=== PATIENT | female | born 1965 | race Caucasian/White ===

== ENCOUNTER 2018-12-26 21:08 | Inpatient (IN) ==
[2018-12-26] MEDS ORDERED: Heparin 25,000 UNIT/250 ML D5W 25,000 UNIT/250 ML IV.SOLN IVC SCH (23:45)
[2018-12-26] MEDS ORDERED: Ondansetron 4 MG/2 ML VIAL IVP PRN (23:46)
[2018-12-26] MEDS ORDERED: Acetaminophen 325 MG TABLET PO PRN (23:46)
[2018-12-26] MEDS ORDERED: *HR* Heparin 5,000 UNIT/ML VIAL IVP PRN ×2 (23:46)
[2018-12-26] MEDS ORDERED: Naloxone 0.4 MG/ML INJ IVP PRN (23:46)
[2018-12-26] MEDS ORDERED: Fluticasone Propionate Nasal 50 MCG/SPRAY BOTTLE NS PRN (23:55)
[2018-12-26] MEDS ORDERED: clonazePAM 0.5 MG TABLET PO PRN (23:55)
[2018-12-26] MEDS ORDERED: Loratadine 10 MG TABLET PO PRN (23:55)
[2018-12-26] MEDS ORDERED: EPINEPHrine 1 MG/ML VIAL IM PRN (23:55)
[2018-12-27] MEDS: *HR* OxyCODONE/APAP 5/325 TABLET PO PRN ×2 (00:54→07:56)
[2018-12-27] MEDS: 0.9 % Sodium Chloride w KCl 20 MEQ/1,000 ML MLS IVC SCH ×2 (00:55→10:46)
[2018-12-27 01:14] LABS: Basophils # 0.1 K/mcL (0.0-0.2); Basophils % 0.8 %; Eosinophils # 0.2 K/mcL (0.0-0.6); Hematocrit 35.3 % (35.3-44.9); Hemoglobin 11.1 g/dL (11.5-15.4); Immature Granulocytes % 0.1 % (0-4); Lymphocytes # 3.2 K/mcL (0.6-4.6); Lymphocytes % 43.2 %; Mean Corpuscular HGB Conc 31.4 g/dL (31.6-35.5); Mean Corpuscular Hemoglobin 29.1 pg (28.0-33.3); Mean Corpuscular Volume 92.4 fL (83.0-100.0); Mean Platelet Volume 9.6 fL (9.4-12.4); Monocytes # 0.5 K/mcL (0.0-1.3); Monocytes % 6.7 %; Neutrophils # 3.5 K/mcL (1.6-8.9); Platelet Count 246 K/mcL (140-400); Red Blood Count 3.82 M/mcL (3.82-4.97); Red Cell Distribution Width 13.2 % (11.5-14.5); Segmented Neutrophils % 47.2 %; White Blood Count 7.3 K/mcL (4.3-11.1)
[2018-12-27 01:34] LABS: Alanine Aminotransferase 7 Units/L (7-52); Albumin 3.7 g/dL (3.5-5.7); Albumin/Globulin Ratio 1.5 (1.1-2.2); Alkaline Phosphatase 46 Units/L (34-104); Aspartate Amino Transferase 10 Units/L (13-39); BUN/Creatinine Ratio 8 (6-26); Bilirubin,Total 0.2 mg/dL (0.3-1.0); Blood Urea Nitrogen 7 mg/dL (6-20); Calcium 8.6 mg/dL (8.6-10.3); Carbon Dioxide 20 mEq/L (23-29); Chloride 109 mEq/L (98-107); Chol/HDL Ratio 3.6 (0-4.9); Cholesterol 172 mg/dL (< 200); Globulin 2.5 g/dL (2.4-3.5); Glucose 113 mg/dL (70-105); HDL Cholesterol 48 mg/dL (40-59); LDL Cholesterol,Calculated 92 mg/dL (0-99); Magnesium 2.1 mg/dL (1.6-2.6); Osmolality,Calculated 289 (280-300); Phosphorous 3.5 mg/dL (2.7-4.5); Potassium 3.4 mEq/L (3.5-5.1); Sodium 140 mEq/L (136-145); Total Protein 6.2 g/dL (6.4-8.9); Triglycerides 159 mg/dL (< 150); eGFR For African Americans > 60 (> 60); eGFR For Non-African Americans > 60 (> 60)
[2018-12-27] MEDS: *HR* FentaNYL (PF) 100 MCG/2 ML VIAL IVP PRN ×2 (02:15→05:40)
--- NOTE | 2018-12-27 02:48 | Internal Med History&Physical ---
Date of Encounter: 12/26/18 Time of Encounter: 23:20 Internal Medicine - H&P: HPI Chief complaint: chest pain; racing heartbeat Admitted From: Hospital to Hospital Transfer Plans for Post Hospital Care: Home History of present illness: Ms. Torres is a 53 year old female who presents in transfer from [facility] ER. She presented there with complaints of palpitations, racing heartbeat, and pain in her right arm and chest. Workup there revealed patient to have atrial fibrillation with rapid ventricular response. She had an elevated d-dimer with subsequent CTA of the chest confirming a small pulmonary e mbolus. She was started on Cardizem drip and heparin drip and transferred to [facility] for further workup and care. I accepted the patient in transfer and requested she be given a dose of potassium supplementation prior to transfer. Upon arrival to [facility], I saw the patient shortly after she arrived. At that point, she converted to normal sinus rhythm. She has minimal chest pain now. She has no shortness of breath. She does complain of pain in her right arm. She was diagnosed with a superficial thrombus in her right arm a few days ago. She did have right shoulder surgery roughly 1 month ago and has been doing well recovering from that. Upon further history, patient states she has had right calf tenderness and leg swelling just last week. The tenderness and swe lling have subsided, but the swelling and pain in her right arm has increased. She has a history of paroxysmal atrial fibrillation one time roughly 2 years ago which was cardioverted. She has had no dysrhythmia since then. She does not take any anticoagulants. She has no prior history of unprovoked DVT or PE. There is a family history of DVT in her paternal uncle side. Past Med Surg Social Fam HX - Past Medical History Attestation: Yes The following information was validated with the patient. Source: patient, old records reviewed, obtained from family Medical history: asthma, atrial fibrillation, COPD, fibromyalgia, GERD, hepatitis, hypertension Additional medical history: Hep C (remission) treated in 2009 Psychiatric history: anxiety, depression - Past Surgical History Surgical History: appendectomy, cholecystectomy, hysterectomy, orthopedic, other Additional surgical history: Rotator cuff-2017. right shoulder replacement- 2019. left shoulder. neck fusion - Social History Smoking Status: Former smoker Smokeless Tobacco Status: No Alcohol use: none Drug use: none Current living situation: Home, With Family Activity Level: Independent ambulation Recent Out of Country Travel Within the Last 8 Weeks: No - Family History Mother Hx Family Cardiac Disorders: Yes Hx Family Respiratory Disorders: Yes - Additional Family History Additional family history: Paternal uncle w DVT Internal Medicine - H&P: Meds Montelukast [Singulair] 10 mg PO HS 05/22/15 [History] rOPINIRole [Requip] 1 mg PO DAILY 08/10/15 [History] Cholecalciferol (D-3) [Vitamin D] 5,000 unit PO BID 01/02/16 [History] Cyanocobalamin (Vitamin B-12) [Vitamin B12] 500 mcg PO BID 01/02/16 [History] Fluticasone Propionate Nasal [Flonase] 1 spray NS BID PRN 01/02/16 [History] Ondansetron HCl [Zofran] 4 mg PO Q8H PRN 01/02/16 [History] Cetirizine HCl [Zyrtec] 10 mg PO DAILY PRN #0 07/19/16 [Rx] Diltiazem CD (24hr) [Cardizem CD] 240 mg PO DAILY 06/18/17 [History] Gabapentin [Neurontin] 800 mg PO TID 06/18/17 [History] Sertraline [Zoloft] 50 mg PO HS 06/18/17 [History] clonazePAM [Klonopin] 0.5 mg PO BID PRN 06/18/17 [History] EPINEPHrine [Epipen] 0.3 mg IM ONCE PRN #1 kit 07/16/17 [Rx] Albuterol Sulfate [Ventolin Hfa] 2 puff IH Q4H PRN 11/19/18 [History] Amlodipine Besylate 5 mg PO DAILY 11/19/18 [History] Cyclobenzaprine [Flexeril] 10 mg PO TID PRN 11/19/18 [History] Metoprolol [Lopressor] 25 mg PO BID 11/19/18 [History] Omeprazole [PriLOSEC] 40 mg PO BID 11/19/18 [History] Pravastatin Sodium [Pravachol] 40 mg PO HS 11/19/18 [History] Tiotropium Br/Olodaterol HCl [Stiolto Respimat Inhal [place]] 2 puff IH DAILY 11/19/18 [History] Topiramate 50 mg PO BID 11/19/18 [History] traZODone [TraZODone] 50 mg PO HS 11/19/18 [History] Naproxen [Naprosyn] 500 mg PO BID #10 tablet 12/25/18 [Rx] OxyCODONE/APAP 5/325 [Percocet 5/325 MG] 1 each PO Q6HR PRN 12/26/18 [History] Allergy/AdvReac Type Severity Reaction Status Date / Time bee venom protein (honey bee) Allergy Anaphylaxis Verified 12/26/18 18:50 aspirin AdvReac Hives/Swell Verified 11/19/18 09:30 ing celecoxib [From Celebrex] AdvReac Hives/Shortness Verified 11/19/18 09:30 of Breath/Swelling mannitol [From Reclast] AdvReac Fever/Nause Verified 11/19/18 09:30 a/Vomiting meloxicam AdvReac Hives/Swell Verified 11/19/18 09:30 ing water for injection,sterile AdvReac Fever/Nause Verified 11/19/18 09:30 [From Reclast] a/Vomiting zoledronic acid AdvReac Fever/Nause Verified 11/19/18 09:30 [From Reclast] a/Vomiting - Constitutional Constitutional: no chills, no fever(s), no night sweats - EENT Eyes: no blurry vision, no change in vision Ears: no ear pain, no tinnitus Nose, mouth and throat: no nasal congestion, no sinus pressure, no sore throat - Cardiovascular Cardiovascular ROS IM: chest pain, dyspnea, dyspnea on exertion, irregular heart rhythm, palpitations, no orthopnea, no paroxysmal nocturnal dyspnea - Respiratory Respiratory: dyspnea, pain on inspiration, pain with cough, no cough, no hemoptysis, no chest congestion, no excessive phlegm production, no change in phlegm color - Gastrointestinal Gastrointestinal: no abdominal pain, no diarrhea, no hematemesis, no hematochezia, no melena, no vomiting - Genitourinary Genitourinary: no dysuria, no flank pain, no hematuria - Musculoskeletal Musculoskeletal ROS IM: arthralgias, no back pain - Integumentary Integumentary IM: no rash, no jaundice - Neurological Neurological ROS: no dizziness, no focal weakness, no frequent falls, no headache(s) - Psychiatric Psychiatric: no anxiety, no depression - Endocrine Endocrine IM: no polydipsia, no polyphagia, no polyuria - Allergic/Immunologic Allergic/Immunologic: no GI upset with certain foods - Constitutional Vitals: Temp Pulse Resp BP Pulse Ox 98.4 F 78 16 123/86 95 12/26/18 22:54 12/26/18 22:54 12/26/18 22:54 12/26/18 22:54 12/26/18 23:08 General appearance: Present: cooperative, mild distress, A&O X 3, pleasant, no acute distress, answers questions appropriately Exam: mild right arm pain/swelling; minimal chest pain now - Head Head exam: Present: atraumatic, normal inspection - Eye Eye exam: Present: EOMI, PERRL. Absent: scleral icterus Pupils: Present: normal accommodation - ENT ENT exam: Present: mucous membranes dry, normal exam, normal oropharynx - Neck Neck exam general surgery: Present: full ROM, supple, trachea midline. Absent: tenderness, nuchal rigidity, thyromegaly - Respiratory Respiratory exam: Present: CTAB. Absent: accessory muscle use, chest wall tenderness, rales, respiratory distress, rhonchi, wheezes, tachypnea - Cardiovascular Cardiovascular exam: Present: distant heart sounds, RRR, +S1, +S2, systolic murmur. Absent: diastolic murmur - GI/Abdominal GI/Abdominal exam: Present: normal bowel sounds, soft. Absent: guarding, hepatomegaly, mass, rebound, splenomegaly, tenderness - Extremities Exam Extremities exam: Present: calf tenderness (right leg), full ROM, joint swelling (right shoulder -- wound healing well), normal capillary refill, tenderness (right arm/axilla w swelling), warm, radial pulses palpable and symmetrical. Absent: pedal edema - Back Exam Back exam: Present: normal inspection. Absent: CVA tenderness (L), CVA tenderness (R) - Neurological Exam Neurological exam: Present: alert, CN II-XII intact, oriented X3, strengths equal and symetr throughout. Absent: motor sensory deficit, no focal deficits - Psychiatric Psychiatric exam: Present: normal affect, normal mood - Skin Skin exam: Present: dry, intact, warm Internal Med - H&P Results - Labs CBC & Chem 7: 12/27/18 00:59 12/27/18 00:59 Labs: Short CBC 12/27/18 Range/Units 00:59 WBC 7.3 (4.3-11.1) K/mcL Hgb 11.1 L (11.5-15.4) g/dL Hct 35.3 (35.3-44.9) % Plt Count 246 (140-400) K/mcL Neutrophils # 3.5 (1.6-8.9) K/mcL BMP 12/27/18 00:59 Sodium 140 Potassium 3.4 L Chloride 109 H Carbon Dioxide 20 L BUN 7 Creatinine 0.83 Glucose 113 H Calcium 8.6 Cardiac Enzymes 12/27/18 Range/Units 00:59 Troponin I < 0.03 (< 0.04) ng/mL Liver Function 12/27/18 Range/Units 00:59 Total Bilirubin 0.2 L (0.3-1.0) mg/dL AST 10 L (13-39) Units/L ALT 7 (7-52) Units/L Alkaline Phosphatase 46 (34-104) Units/L Albumin 3.7 (3.5-5.7) g/dL - EKG Data -: EKG Interpreted by Myself - EKG Data Prior EKG available for review: yes EKG comments: 12/27/18 02:53 Atrial Fibrillation w RVR -- converted to NSR - Assessment and Plan (1) Atrial fibrillation with RVR Current Visit: Yes Status: Acute Assessment and plan: 1. Currently in NSR. 2. Wean off Cardizem drip. 3. Correct electrolytes. 4. Resume home meds in AM (Metoprolol/Cardizem). 5. ECHO, serial troponins, and telemetry monitoring. 6. Heparin gtt. 7. Consult cardiology. (2) Pulmonary embolism Current Visit: Yes Status: Acute Assessment and plan: 1. Heparin drip. 2. ECHO as above. 3. BLE and BUE Dopplers to rule out potential source for PE. 4. Convert to oral anti-coagulant prior to discharge. Qualifiers: Pulmonary embolism type: unspecified Chronicity: acute Acute cor pulmonale presence: without acute cor pulmonale Qualified Code(s): I26.99 - Other pulmonary embolism without acute cor pulmonale (3) S/P shoulder hemiarthroplasty Current Visit: Yes Status: Chronic Assessment and plan: 1. Consult orthopedics to assess wound and for post-op care. Qualifiers: Laterality: right Qualified Code(s): Z96.611 - Presence of right artificial shoulder joint (4) Hypokalemia Current Visit: Yes Status: Acute Assessment and plan: 1. Replace potassium orally. 2. Monitor electrolytes.
[2018-12-27] MEDS: Diltiazem CD (24hr) 240 MG CAPSULE PO SCH (07:55)
[2018-12-27] MEDS: Topiramate 25 MG TABLET PO SCH ×2 (07:55→19:53)
[2018-12-27] MEDS: Gabapentin 400 MG CAPSULE PO SCH ×3 (07:55→19:26)
[2018-12-27] MEDS: Cholecalciferol (D-3) 1,000 UNIT (25MCG) TABLET PO SCH (07:55)
--- NOTE | 2018-12-27 08:46 | Cardiology Consult Note ---
<Stu Cunningham Sabina - Last Filed: 12/27/18 09:08> Date of Encounter: 12/27/18 Time of Encounter: 08:37 Assessment and Plan (1) PAF (paroxysmal atrial fibrillation) Current Visit: Yes Status: Acute PAF diagnosed. A-Fib RVR HR 160s on presentation. Had been worked up for palpitations as outpt--Holter 09/2018 no arrhythmias noted. TTE 2015 EF preserved. Stress echo 09/2018 negative for ischemia. Pt has since converted back to SR. On PO BB and CCB. Continue. [id number] 2 (HTN, Female). High CVA risk. PE noted on chest CTA. Xarelto has already been started, PE dosing. Recommend rechecking TTE to evaluate structure and function. Will discuss and review with Dr. Kwok. (2) Pulmonary embolism Current Visit: Yes Status: Acute Management per primary team. Started on Xarelto. Qualifiers: Pulmonary embolism type: unspecified Chronicity: acute Acute cor pulmonale presence: without acute cor pulmonale Qualified Code(s): I26.99 - Other pulmonary embolism without acute cor pulmonale Discussion w patient/family: The assessment and plan as outlined above was discussed with the patient and/or family members who expressed understanding and agreement. All questions were answered. Thank you for involving us in the care of your patient. Please call with any questions. I will discuss all the above with Dr. Kwok and make changes as necessary. History of Present Illness Consult date: 12/27/18 Consult reason: PAF Chief complaint: palpitations History of present illness: Ms. Torres is a 53 year old female with PMH of HTN, palpitations who presents in transfer from [facility] ER. She presented with complaints of palpitations, pain in her right arm and chest, dyspnea. Workup revealed A-Fib RVR, elevated d-dimer with subsequent CTA of the chest confirming a small pulmonary embolus. She was started on Cardizem drip and heparin drip and transferred to [facility] for further workup and care. She has since coverted to . Reports a superficial thrombus in her right arm recently with right shoulder surgery roughly 1 month ago. Cardiology consulted for PAF. Prior CV testing: TTE 04/01/16: LVEF 55%. Pseudonormal LV diastolic function. Normal right ventricular size and function. No significant valvular dysfunction. Estimated RVSP was 13 mmHg. No pulmonary hypertension. Stress echo 10/07/18: Appropriate increase in LVEF with stress. Stress ECG is negative for ischemia. Holter 10/08/18: Impression: 1. Baseline rhythm is normal sinus throughout recording. 2. Rare PACs. Rare PVCs. 3. No atrial or ventricular arrhythmias. No pauses. 4. During pt reported symptoms, rhythm is normal sinus. Past Med Surg Social Fam HX - Past Medical History Medical history: asthma, atrial fibrillation, COPD, fibromyalgia, GERD, hepatitis, hypertension Additional medical history: Hep C (remission) treated in 2009 Psychiatric history: anxiety, depression - Past Surgical History Surgical History: appendectomy, cholecystectomy, hysterectomy, orthopedic, other Additional surgical history: Rotator cuff-2017. right shoulder replacement- 2019. left shoulder. neck fusion - Social History Smoking Status: Former smoker Smokeless Tobacco Status: No Alcohol use: none Drug use: none - Family History Mother Hx Family Cardiac Disorders: Yes Hx Family Respiratory Disorders: Yes Medications and Allergies Montelukast [Singulair] 10 mg PO HS 05/22/15 [History] rOPINIRole [Requip] 1 mg PO DAILY 08/10/15 [History] Cholecalciferol (D-3) [Vitamin D] 5,000 unit PO BID 01/02/16 [History] Cyanocobalamin (Vitamin B-12) [Vitamin B12] 500 mcg PO BID 01/02/16 [History] Fluticasone Propionate Nasal [Flonase] 1 spray NS BID PRN 01/02/16 [History] Ondansetron HCl [Zofran] 4 mg PO Q8H PRN 01/02/16 [History] Cetirizine HCl [Zyrtec] 10 mg PO DAILY PRN #0 07/19/16 [Rx] Diltiazem CD (24hr) [Cardizem CD] 240 mg PO DAILY 06/18/17 [History] Gabapentin [Neurontin] 800 mg PO TID 06/18/17 [History] Sertraline [Zoloft] 50 mg PO HS 06/18/17 [History] clonazePAM [Klonopin] 0.5 mg PO BID PRN 06/18/17 [History] EPINEPHrine [Epipen] 0.3 mg IM ONCE PRN #1 kit 07/16/17 [Rx] Albuterol Sulfate [Ventolin Hfa] 2 puff IH Q4H PRN 11/19/18 [History] Amlodipine Besylate 5 mg PO DAILY 11/19/18 [History] Cyclobenzaprine [Flexeril] 10 mg PO TID PRN 11/19/18 [History] Metoprolol [Lopressor] 25 mg PO BID 11/19/18 [History] Omeprazole [PriLOSEC] 40 mg PO BID 11/19/18 [History] Pravastatin Sodium [Pravachol] 40 mg PO HS 11/19/18 [History] Tiotropium Br/Olodaterol HCl [Stiolto Respimat Inhal [place]] 2 puff IH DAILY 11/19/18 [History] Topiramate 50 mg PO BID 11/19/18 [History] traZODone [TraZODone] 50 mg PO HS 11/19/18 [History] Naproxen [Naprosyn] 500 mg PO BID #10 tablet 12/25/18 [Rx] OxyCODONE/APAP 5/325 [Percocet 5/325 MG] 1 each PO Q6HR PRN 12/26/18 [History] Allergy/AdvReac Type Severity Reaction Status Date / Time bee venom protein (honey bee) Allergy Anaphylaxis Verified 12/26/18 18:50 aspirin AdvReac Hives/Swell Verified 11/19/18 09:30 ing celecoxib [From Celebrex] AdvReac Hives/Shortness Verified 11/19/18 09:30 of Breath/Swelling mannitol [From Reclast] AdvReac Fever/Nause Verified 11/19/18 09:30 a/Vomiting meloxicam AdvReac Hives/Swell Verified 11/19/18 09:30 ing water for injection,sterile AdvReac Fever/Nause Verified 11/19/18 09:30 [From Reclast] a/Vomiting zoledronic acid AdvReac Fever/Nause Verified 11/19/18 09:30 [From Reclast] a/Vomiting All Systems Review: The remainder of the systems were reviewed and are negative - Cardiovascular Cardiovascular: as per HPI, chest pain at rest, dyspnea at rest, dyspnea on exertion, radiating jaw, neck or arm pain, palpitations - Respiratory Respiratory: dyspnea Physical Examination Vital Signs, Last 4 Hours Temp Pulse Resp BP Pulse Ox 12/27/18 07:15 98.1 F 67 14 101/68 93 12/27/18 04:56 97.6 F 62 12 97/65 93 Vital Signs Temp Pulse Resp BP Pulse Ox 12/27/18 07:15 98.1 F 67 14 101/68 93 12/27/18 04:56 97.6 F 62 12 97/65 93 12/26/18 23:08 95 12/26/18 22:54 98.4 F 78 16 123/86 95 Intake and Output 12/26/18 12/27/18 12/27/18 23:59 07:59 15:59 Intake Total 75 / 115 40 / 115 Output Total 0 / 0 Balance 75 / 115 40 / 115 Intake: IV Fluids 40 / 55 Heparin 25,000 UNIT/250 ML D5W 25,000 unit In 250 ml @ 14 UNIT /KG/HR 9.772 mls/hr IVC .Q24H ASHIA Rx#:[id number] Oral 60 / 60 Output: Urine 0 / 0 Other: # Voids 1 Weight 69.8 kg 69.8 kg Patient Weight 12/27/18 23:59 Weight 69.8 kg General: Conversant, No Apparent Distress HEENT: Atraumatic, Normocephaly, Mucus Membranes Moist Neck: No JVD, Normal carotid pulses Cardiac: Reg Rate and Rhythm, Normal S1 and S2, No Murmur Lungs: Normal Breath Sounds, No Wheeze, Rales, Rhonchi Neuro: Alert and responsive, No focal deficits noted Abdomen: Soft, Non-Tender Skin: No rashes noted on visualized skin Musculoskeletal: No Chest Wall Tenderness Extremities: No Clubbing, No Cyanosis, No Edema, Normal Pulses Results 12/27/18 00:59 12/27/18 00:59 Lab Results 12/27/18 12/27/18 12/27/18 00:59 00:59 00:59 WBC 7.3 Hgb 11.1 L Hct 35.3 Plt Count 246 Sodium 140 Potassium 3.4 L Chloride 109 H Carbon Dioxide 20 L BUN 7 Creatinine 0.83 Glucose 113 H Calcium 8.6 Magnesium 2.1 Total Bilirubin 0.2 L AST 10 L ALT 7 Alkaline Phosphatase 46 Troponin I < 0.03 12/27/18 03:28 WBC Hgb Hct Plt Count Sodium Potassium Chloride Carbon Dioxide BUN Creatinine Glucose Calcium Magnesium Total Bilirubin AST ALT Alkaline Phosphatase Troponin I < 0.03 Short CBC 12/27/18 Range/Units 00:59 WBC 7.3 (4.3-11.1) K/mcL Hgb 11.1 L (11.5-15.4) g/dL Hct 35.3 (35.3-44.9) % Plt Count 246 (140-400) K/mcL Neutrophils # 3.5 (1.6-8.9) K/mcL BMP 12/27/18 Range/Units 00:59 Sodium 140 (136-145) mEq/L Potassium 3.4 L (3.5-5.1) mEq/L Chloride 109 H (98-107) mEq/L Carbon Dioxide 20 L (23-29) mEq/L BUN 7 (6-20) mg/dL Creatinine 0.83 (0.60-1.20) mg/dL Glucose 113 H (70-105) mg/dL Calcium 8.6 (8.6-10.3) mg/dL Cardiac Enzymes 12/27/18 12/27/18 Range/Units 03:28 00:59 Troponin I < 0.03 < 0.03 (< 0.04) ng/mL Liver Function 12/27/18 Range/Units 00:59 Total Bilirubin 0.2 L (0.3-1.0) mg/dL AST 10 L (13-39) Units/L ALT 7 (7-52) Units/L Alkaline Phosphatase 46 (34-104) Units/L Albumin 3.7 (3.5-5.7) g/dL Active Medications Acetaminophen (Tylenol) 650 mg PO Q6HR PRN PRN Reason: Mild Pain/Fever Stop: 06/27/19 23:47 Albuterol Sulfate (Proventil Inhaler) 2 puff IH Q4H PRN PRN Reason: Shortness Of Breath Stop: 06/27/19 23:56 Atorvastatin Calcium (Lipitor) 10 mg PO HS ASHIA Stop: 06/28/19 21:01 Clonazepam (Klonopin) 0.5 mg PO BID PRN PRN Reason: Anxiety Stop: 06/27/19 23:56 Diltiazem HCl (Cardizem Cd) 240 mg PO DAILY ASHIA Stop: 06/28/19 09:01 Last Admin: 12/27/18 07:55 Dose: 240 mg Documented by: Epinephrine HCl (Epinephrine) 0.3 mg IM ONCE PRN PRN Reason: Allergic Reaction Stop: 06/27/19 23:56 Fentanyl Citrate (Fentanyl (Pf)) 25 mcg IVP Q3H PRN PRN Reason: Breakthrough Pain Stop: 06/27/19 23:46 Last Admin: 12/27/18 05:40 Dose: 25 mcg Documented by: Fluticasone Propionate (Flonase) 50 mcg NS BID PRN; Protocol PRN Reason: Congestion Stop: 06/27/19 23:56 Gabapentin (Neurontin) 800 mg PO TID [facility] Stop: 06/28/19 09:01 Last Admin: 12/27/18 07:55 Dose: 800 mg Documented by: Potassium Chloride/Sodium Chloride (Kcl 20 Meq In 0.9% Sodium Chloride) 20 meq in 1,000 mls @ 100 mls/hr IVC .Q10H [facility] Stop: 12/27/18 19:44 Last Admin: 12/27/18 00:55 Dose: 100 mls/hr Documented by: Diltiazem HCl 50 mg/ Sodium (Chloride) 50 mls @ 5 mls/hr IVC .Q10H [facility]; Protocol Stop: 06/27/19 23:46 Last Admin: 12/27/18 01:02 Dose: Not Given Documented by: Loratadine (Claritin) 10 mg PO DAILY PRN PRN Reason: Allergy Symptoms Metoprolol Tartrate (Lopressor) 25 mg PO BID [facility] Stop: 06/28/19 09:01 Last Admin: 12/27/18 07:55 Dose: 25 mg Documented by: Montelukast Sodium (Singulair) 10 mg PO HS [facility] Stop: 06/28/19 21:01 Naloxone HCl (Narcan) 0.4 mg IVP Q2MPRN PRN PRN Reason: SEE COMMENTS Stop: 06/27/19 23:47 Omeprazole (Prilosec) 40 mg PO BIDAC [facility] Stop: 06/28/19 07:31 Last Admin: 12/27/18 07:57 Dose: 40 mg Documented by: Ondansetron HCl (Zofran) 4 mg IVP Q8HR PRN PRN Reason: Nausea And Vomiting Stop: 06/27/19 23:47 Oxycodone/Acetaminophen (Percocet 5/325) 1 each PO Q6HR PRN PRN Reason: mild to moderate pain Stop: 06/27/19 23:56 Last Admin: 12/27/18 07:56 Dose: 1 each Documented by: Pharmacy Profile Note (Patient Taking Own Medication) 0 each IH DAILY [facility] Stop: 06/28/19 09:01 Last Admin: 12/27/18 09:07 Dose: Not Given Documented by: Rivaroxaban (Xarelto) 15 mg PO BID [facility] Stop: 06/28/19 09:01 Last Admin: 12/27/18 09:06 Dose: 15 mg Documented by: Topiramate (Topamax) 50 mg PO BID [facility] Stop: 06/28/19 09:01 Last Admin: 12/27/18 07:55 Dose: 50 mg Documented by: Vitamin D (Vitamin D) 1,000 unit PO DAILY [facility] Stop: 06/28/19 09:01 Last Admin: 12/27/18 07:55 Dose: 1,000 unit Documented by: - Imaging and Cardiology Stress Test: report reviewed Echo: report reviewed Holter: report reviewed - EKG Interpretation EKG results cardiology: personally reviewed (A-Fib RVR HR 160s) <Oxana Kwok - Last Filed: 12/27/18 12:16> Date of Encounter: 12/27/18 - Attending Attestation I have personally performed a face to face evaluation on this patient. I have reviewed and agree with the care plan documented by [employer]. Assessment and Plan Discussion w patient/family: The assessment and plan as outlined above was discussed with the patient and/or family members who expressed understanding and agreement. All questions were an swered. Thank you for involving us in the care of your patient. Please call with any questions. History of Present Illness History of present illness: Ms. Torres is a 53 year old female All Systems Review: The remainder of the systems were reviewed and are negative Physical Examination Vital Signs, Last 4 Hours Temp Pulse Resp BP Pulse Ox 12/27/18 11:50 98.4 F 51 18 95/66 91 Results 12/27/18 00:59 12/27/18 00:59 Lab Results 12/27/18 12/27/18 12/27/18 00:59 00:59 00:59 WBC 7.3 Hgb 11.1 L Hct 35.3 Plt Count 246 Sodium 140 Potassium 3.4 L Chloride 109 H Carbon Dioxide 20 L BUN 7 Creatinine 0.83 Glucose 113 H Calcium 8.6 Magnesium 2.1 Total Bilirubin 0.2 L AST 10 L ALT 7 Alkaline Phosphatase 46 Troponin I < 0.03 12/27/18 12/27/18 03:28 11:15 WBC Hgb Hct Plt Count Sodium Potassium Chloride Carbon Dioxide BUN Creatinine Glucose Calcium Magnesium Total Bilirubin AST ALT Alkaline Phosphatase Troponin I < 0.03 < 0.03
[2018-12-27] MEDS ORDERED: amLODIPine 5 MG TABLET PO SCH (09:00)
[2018-12-27] MEDS: *HR* Rivaroxaban 15 MG TABLET PO SCH ×2 (09:06→19:26)
--- NOTE | 2018-12-27 13:45 | Internal Med Progress Note ---
Hospitalist Progress Note - Encounter Date of Encounter: 12/27/18 Time of Encounter: 13:45 - Subjective Interval History: I have seen and evaluated the patient at bedside. Patient reports she is doing better today but reports left shoulder pain. denies chest pain or shortness of breath, denies nausea or vomiting. - Exam Vitals: Temp Pulse Resp BP Pulse Ox 98.4 F 51 18 95/66 91 12/27/18 11:50 12/27/18 11:50 12/27/18 11:50 12/27/18 11:50 12/27/18 11:50 Exam: Vitals: Reviewed General: Alert and oriented x4. In mild distress due to left shoulder pain Cardiovascular: RRR, normal S1 & S2, no rubs, murmurs or gallops. Lungs: CTA b/l, no wheezes or crackles. Abdomen: Soft, non-tender, no rigidity. Extremities: No edema. Neurological: Normal cognition and motor skills. Rest of the physical exam is non contributory - Assessment and Plan (1) Atrial fibrillation with RVR Current Visit: Yes Status: Resolved Assessment and Plan: patient reports this is the second time she goes into A.fib with RvR. Plan - wean patient off cardizem drip - continue bb and oral calcium channel rohit - CHADSVASC score >2. on an oral anticoagulant. - Cardiology recommendations appreciated (2) Hypokalemia Current Visit: Yes Status: Acute Assessment and Plan: electrolyte replaced. will repeat potassium level 1 hour post replacement (3) Pulmonary embolism Current Visit: Yes Status: Acute Assessment and Plan: CT/CT angio chest IMPRESSION: Small pulmonary embolus in a branch of the right lower lobe pulmonary artery. Overall clot burden is low. No evidence of right ventricular strain. Apical predominant emphysema. The lungs are clear. BP in the soft side, low clot burden on CTA. Plan - DC heparin drip - started on rivaroxaban 15mg/PO BID - TTE ordered - venous dupplex pending (4) S/P shoulder hemiarthroplasty Current Visit: Yes Status: Chronic Assessment and Plan: continue pain control. DVT Prophylaxis: patient on an oral anticoagulant due to PE - Summary of Assessment and Plan Summary of Assessment and Plan: patient to remain in the hospital due to PE. left shoulder pain. Potential discharge tomorrow - Time Spent with Patient Total time spent is greater than 50% in coordination of care (as documented) at patient's floor/unit and/or counseling patient: Greater than 35 minutes (40) Plan of Care Discussed with: patient (and the nurse.) Internal Medicine: Result - Labs CBC & Chem 7: 12/27/18 00:59 12/27/18 00:59 Labs: Short CBC 12/27/18 Range/Units 00:59 WBC 7.3 (4.3-11.1) K/mcL Hgb 11.1 L (11.5-15.4) g/dL Hct 35.3 (35.3-44.9) % Plt Count 246 (140-400) K/mcL Neutrophils # 3.5 (1.6-8.9) K/mcL BMP 12/27/18 00:59 Sodium 140 Potassium 3.4 L Chloride 109 H Carbon Dioxide 20 L BUN 7 Creatinine 0.83 Glucose 113 H Calcium 8.6 Cardiac Enzymes 12/27/18 12/27/18 12/27/18 Range/Units 00:59 03:28 11:15 Troponin I < 0.03 < 0.03 < 0.03 (< 0.04) ng/mL Liver Function 12/27/18 Range/Units 00:59 Total Bilirubin 0.2 L (0.3-1.0) mg/dL AST 10 L (13-39) Units/L ALT 7 (7-52) Units/L Alkaline Phosphatase 46 (34-104) Units/L Albumin 3.7 (3.5-5.7) g/dL Consult Discharge Plan - Plan Referrals: NONE,PCP [Primary Care Provider] - (3) Pulmonary embolism Qualifiers: Pulmonary embolism type: unspecified Chronicity: acute Acute cor pulmonale presence: without acute cor pulmonale Qualified Code(s): I26.99 - Other pulmona ry embolism without acute cor pulmonale (4) S/P shoulder hemiarthroplasty Qualifiers: Laterality: right Qualified Code(s): Z96.611 - Presence of right artificial shoulder joint
--- NOTE | 2018-12-27 16:55 | Electrocardiograph Report ---
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
[2018-12-27] MEDS ORDERED: *HR* FentaNYL PATCH 12 MCG PATCH TD SCH (17:15)
--- NOTE | 2018-12-28 08:10 | Event Note ---
Date of Encounter: 12/28/18 Time of Encounter: 08:09 - Cardiology Event Note Cardiology consulted for a.fib RVR. PAF noted. Patient on BB and CCB, HR currently controlled. TTE with LVEF preserved, no wall motion abnormalities noted. On xarelto for anticoagulation, PE dosing. Cardiology will sign off, will arrange outpatient follow up.
[2018-12-28] MEDS: Topiramate 25 MG TABLET PO SCH ×2 (08:33→20:14)
[2018-12-28] MEDS: Cholecalciferol (D-3) 1,000 UNIT (25MCG) TABLET PO SCH (08:33)
[2018-12-28] MEDS: *HR* Rivaroxaban 15 MG TABLET PO SCH ×2 (08:34→20:14)
[2018-12-28] MEDS: Gabapentin 400 MG CAPSULE PO SCH ×3 (08:34→20:14)
[2018-12-28] MEDS: Diltiazem CD (24hr) 240 MG CAPSULE PO SCH (08:34)
[2018-12-28 08:58] LABS: Basophils # 0.1 K/mcL (0.0-0.2); Basophils % 0.8 %; Eosinophils # 0.2 K/mcL (0.0-0.6); Eosinophils % 2.6 %; Hematocrit 34.5 % (35.3-44.9); Hemoglobin 10.8 g/dL (11.5-15.4); Immature Granulocytes % 0.3 % (0-4); Lymphocytes # 2.2 K/mcL (0.6-4.6); Lymphocytes % 36.3 %; Mean Corpuscular HGB Conc 31.3 g/dL (31.6-35.5); Mean Corpuscular Hemoglobin 29.4 pg (28.0-33.3); Monocytes # 0.4 K/mcL (0.0-1.3); Monocytes % 5.9 %; Neutrophils # 3.3 K/mcL (1.6-8.9); Platelet Count 250 K/mcL (140-400); Red Blood Count 3.67 M/mcL (3.82-4.97); Segmented Neutrophils % 54.1 %; White Blood Count 6.1 K/mcL (4.3-11.1)
[2018-12-28 09:16] LABS: Blood Urea Nitrogen 10 mg/dL (6-20); Carbon Dioxide 20 mEq/L (23-29); Chloride 110 mEq/L (98-107); Glucose 106 mg/dL (70-105); Magnesium 2.1 mg/dL (1.6-2.6); Osmolality,Calculated 291 (280-300); Phosphorous 3.2 mg/dL (2.7-4.5); Potassium 4.2 mEq/L (3.5-5.1); Sodium 141 mEq/L (136-145)
[2018-12-28 09:36] LABS: BUN/Creatinine Ratio 14 (6-26); eGFR For African Americans > 60 (> 60); eGFR For Non-African Americans > 60 (> 60)
[2018-12-28] MEDS ORDERED: Acetaminophen IV 1,000 MG/100 ML INFUS..BTL IVPB ONE (11:20)
[2018-12-28] MEDS: *HR* OxyCODONE/APAP 5/325 TABLET PO PRN ×2 (17:36→23:36)
--- NOTE | 2018-12-28 19:19 | Internal Med Progress Note ---
Hospitalist Progress Note - Encounter Date of Encounter: 12/28/18 Time of Encounter: 13:30 - Subjective Interval History: Ms sahu is quite tearful as she continues to complain of right shoulder pain. She stated the IV Tylenol helped. GEN: Denies fever, chills or malaise HEENT: Denies headache blurriness, or dysphagia RESP: Denies SOB or cough CV: Denies chest pain or palpitations GI: Denies Nausea, vomiting, diarrhea or constipation Reviewed current in hospital medications with modifications see orders Reviewed Routine labs - Exam Vitals: Temp Pulse Resp BP Pulse Ox 98.2 F 55 16 123/75 93 12/28/18 16:02 12/28/18 16:02 12/28/18 16:02 12/28/18 16:02 12/28/18 16:02 Exam: GEN: NAD, A&O x 3, Pleasant and conversant odor at times tearful SKIN: [place] warm acyanotic not jaundice HEART: RRR, no murmurs LUNGS: CTA no wheeze or crackles, overall non labored ABDOMEN; Soft, non tender or distended, BS x 4 normactive EXT: No LE edema, Pedal pulses 1+, radial pulses 2+ PSYCH: Mood depressed and affect is labile Normal sinus rhythm noted on telemetry - Assessment and Plan (1) Pulmonary embolism Current Visit: Yes Status: Acute Assessment and Plan: Xarelto has been ordered, case management Working on Coverage CT/CT angio chest IMPRESSION: Small pulmonary embolus in a branch of the right lower lobe pulmonary artery. Overall clot burden is low. No evidence of right ventricular strain. Apical predominant emphysema. The lungs are clear. BP in the soft side, low clot burden on CTA. Plan - DC heparin drip - started on rivaroxaban 15mg/PO BID - TTE ordered - venous dupplex pending (2) Atrial fibrillation with RVR Current Visit: Yes Status: Resolved Assessment and Plan: Cardiology recommendations appreciated. Rate controlled but has been bradyc ardic which could be multifactorial (3) Hypokalemia Current Visit: Yes Status: Acute Assessment and Plan: Resolved potassium 4.2 (4) S/P shoulder hemiarthroplasty Current Visit: Yes Status: Chronic Assessment and Plan: continue pain control. Patient continued to complain of pain physical exam was remarkable. We will switch to oral Percocet (5) Chronic thrombosis of cephalic vein Current Visit: Yes Status: Acute Assessment and Plan: Continue conservative treatment, already on anticoagulation therapy DVT Prophylaxis: On xarelto - Time Spent with Patient Total time spent is greater than 50% in coordination of care (as documented) at patient's floor/unit and/or counseling patient: Internal Medicine: Result - Labs CBC & Chem 7: 12/28/18 08:26 12/28/18 08:26 Labs: Short CBC 12/28/18 Range/Units 08:26 WBC 6.1 (4.3-11.1) K/mcL Hgb 10.8 L (11.5-15.4) g/dL Hct 34.5 L (35.3-44.9) % Plt Count 250 (140-400) K/mcL Neutrophils # 3.3 (1.6-8.9) K/mcL BMP 12/28/18 08:26 Sodium 141 Potassium 4.2 Chloride 110 H Carbon Dioxide 20 L BUN 10 Creatinine 0.73 Glucose 106 H Calcium 9.0 - Impressions Impressions Echocardiogram 12/26/18 23:58 Impressions: LVEF 60%. Indeterminate diastolic function. Normal LV chamber size, wall thickness and systolic function. The right ventricle was not well visualized but appeared grossly normal in size and function No evidence of pulmonary hypertension. No significant valvular dysfunction. Left Ventricular Wall Motion: Rest Echo Findings All wall segments showed normal motion. Findings: Study Quality * Technically sub-optimal due to poor echocardiographic windows. ECG Findings * Normal sinus rhythm. Left Ventricle * LVEF 60%. * Indeterminate diastolic function. * Normal LV chamber size, wall thickness and systolic function. Right Ventricle * The right ventricle was not well visualized but appeared grossly normal in size and function Left Atrium * Normal left atrial size. Right Atrium * Normal right atrial size. Interatrial Septum * Interatrial septum not well evaluated. Aortic Valve * Aortic valve not well visualized. * No aortic regurgitation. * No aortic stenosis. Mitral Valve * Normal mitral valve structure. * No mitral regurgitation. * No mitral stenosis. Tricuspid Valve * Trace tricuspid regurgitation. * No evidence of pulmonary hypertension. * No tricuspid stenosis. * Normal tricuspid valve structure. Pulmonic Valve * Pulmonic valve is not well visualized. Aorta * Normally sized aortic root. Pericardium * The pericardium appears normal. IVC * Normal IVC dimensions and inspiratory collapse. Pulmonary Artery * Pulmonary artery not well visualized. Consult Discharge Plan - Plan Referrals: NONE,PCP [Primary Care Provider] - (1) Pulmonary embolism Qualifiers: Pulmonary embolism type: unspecified Chronicity: acute Acute cor pulmonale presence: without acute cor pulmonale Qualified Code(s): I26.99 - Other pulmonary embolism without acute cor pulmonale (4) S/P shoulder hemiarthroplasty Qualifiers: Laterality: right Qualified Code(s): Z96.611 - Presence of right artificial shoulder joint
[2018-12-29 06:14] LABS: Basophils # 0.1 K/mcL (0.0-0.2); Basophils % 0.9 %; Eosinophils # 0.2 K/mcL (0.0-0.6); Eosinophils % 2.6 %; Hematocrit 33.1 % (35.3-44.9); Hemoglobin 10.6 g/dL (11.5-15.4); Immature Granulocytes % 0.2 % (0-4); Lymphocytes # 3.2 K/mcL (0.6-4.6); Lymphocytes % 49.9 %; Mean Corpuscular Hemoglobin 30.2 pg (28.0-33.3); Mean Corpuscular Volume 94.3 fL (83.0-100.0); Mean Platelet Volume 9.8 fL (9.4-12.4); Monocytes # 0.5 K/mcL (0.0-1.3); Monocytes % 7.1 %; Neutrophils # 2.5 K/mcL (1.6-8.9); Platelet Count 247 K/mcL (140-400); Red Blood Count 3.51 M/mcL (3.82-4.97); Segmented Neutrophils % 39.3 %; White Blood Count 6.5 K/mcL (4.3-11.1)
[2018-12-29 06:35] LABS: BUN/Creatinine Ratio 14 (6-26); Blood Urea Nitrogen 13 mg/dL (6-20); Calcium 8.7 mg/dL (8.6-10.3); Carbon Dioxide 21 mEq/L (23-29); Chloride 105 mEq/L (98-107); Glucose 107 mg/dL (70-105); Osmolality,Calculated 287 (280-300); Potassium 3.7 mEq/L (3.5-5.1); Sodium 138 mEq/L (136-145); eGFR For African Americans > 60 (> 60); eGFR For Non-African Americans > 60 (> 60)
[2018-12-29 07:21] VITALS: BP 109/68
[2018-12-29] MEDS: Cholecalciferol (D-3) 1,000 UNIT (25MCG) TABLET PO SCH (08:27)
[2018-12-29] MEDS: Topiramate 25 MG TABLET PO SCH (08:27)
[2018-12-29] MEDS: Diltiazem CD (24hr) 240 MG CAPSULE PO SCH (08:27)
[2018-12-29] MEDS: *HR* Rivaroxaban 15 MG TABLET PO SCH (08:28)
[2018-12-29] MEDS: *HR* OxyCODONE/APAP 5/325 TABLET PO PRN (08:28)
[2018-12-29] MEDS: Gabapentin 400 MG CAPSULE PO SCH (08:28)
--- NOTE | 2018-12-29 08:55 | Discharge Summary ---
- NOTES TO OUTPATIENT PROVIDER Notes to Outpatient Provider: Post hospital discharge for atrial fibrillation with rapid ventricular response, pulmonary embolism started on anticoagulation therapy with xarelto Date of Encounter: 12/29/18 Time of Encounter: 08:52 - Discharge Diagnosis (1) Pulmonary embolism Priority: Primary Status: Acute Assessment and Plan: Xarelto has been ordered, case management Working on Coverage per patient will cost $2 CT/CT angio chest IMPRESSION: Small pulmonary embolus in a branch of the right lower lobe pulmonary artery. Overall clot burden is low. No evidence of right ventricular strain. Apical predominant emphysema. The lungs are clear. BP in the soft side, low clot burden on CTA. Plan - DC heparin drip - started on rivaroxaban 15mg/PO BID - TTE ordered - venous dupplex pending Qualifiers: Pulmonary embolism type: unspecified Chronicity: acute Acute cor pulmonale presence: without acute cor pulmonale Qualified Code(s): I26.99 - Other pulmonary embolism without acute cor pulmonale (2) Atrial fibrillation with RVR Priority: Primary Status: Resolved Assessment and Plan: Cardiology recommendations appreciated. Rate controlled but has been bradycardic which could be multifactorial, 59-66 noted on telemetry. On xarelto and low-dose metoprolol 12.5 twice a day (3) Hypokalemia Priority: Secondary Status: Acute Assessment and Plan: Resolved potassium 4.2 yesterday 3.7 today at discharge (4) S/P shoulder hemiarthroplasty Priority: Secondary Status: Chronic Assessment and Plan: continue pain control. Patient reports marked improvement in her pain today since starting Percocet would discharge in the 7 days. He was strongly advised and encouraged to follow up with her PCP or Orthopedic Physician if she needs more pain medications Qualifiers: Laterality: right Qualified Code(s): Z96.611 - Presence of right artificial shoulder joint (5) Chronic thrombosis of cephalic vein Priority: Secondary Status: Acute Assessment and Plan: Continue conservative treatment, already on anticoagulation therapy Qualifiers: Laterality: right Qualified Code(s): I82.711 - Chronic embolism and thro mbosis of superficial veins of right upper extremity Hospital course: Ms. Torres is a 53 year old female was hospitalized for palpitation noted to be in atrial fibrillation with rapid ventricular response. Among her workup was a CTA chest revealed a pulmonary embolus she was started on heparin drip and was switched to xarelto. Case management was involved in giving the patient have outpatient Xarelto will be $2 co-pay. Also during this hospitalization the patient became bradycardic as such diltiazem was discontinued, she was monitored on telemetry and placed on low dose metoprolol. At discharge, pulse ranges from 50-66 and she is otherwise asymptomatic. Patient was also treated for her intractable pain from status post shoulder hemiarthroplasty and also chronic thrombosis of cephalic vein Discharge discussed with: patient, nurse, social work, case management - Time Spent with Patient Total time spent providing and/or coordinating discharge services:37 mins - Discharge Medications Prescriptions: New DULoxetine [Cymbalta] 30 mg PO DAILY #30 capsule. Metoprolol [Lopressor] 12.5 mg PO BID 30 Days #30 tablet Polyethylene Glycol 3350 [MiraLAX] 17 gm PO DAILY #527 gm OxyCODONE/APAP 5/325 [Percocet 5/325 MG] 1 each PO Q6HR PRN 7 Days #28 tablet PRN Reason: Severe Pain Rivaroxaban [Xarelto] 15 mg PO BID #0 tablet Continued rOPINIRole [Requip] 1 mg PO DAILY Cyanocobalamin (Vitamin B-12) [Vitamin B12] 500 mcg PO BID Cholecalciferol (D-3) [Vitamin D] 5,000 unit PO BID Ondansetron HCl [Zofran] 4 mg PO Q6H PRN PRN Reason: Nausea Fluticasone Propionate Nasal [Flonase] 1 spray NS DAILY PRN PRN Reason: Allergy Symptoms clonazePAM [Klonopin] 0.5 mg PO BID PRN PRN Reason: Anxiety Gabapentin [Neurontin] 800 mg PO TID Cyclobenzaprine [Flexeril] 10 mg PO TID PRN PRN Reason: Pain Pravastatin Sodium [Pravachol] 40 mg PO HS Tiotropium Br/Olodaterol HCl [Stiolto Respimat Inhal Choudrant] 2 puff IH DAILY Albuterol Sulfate [Ventolin Hfa] 2 puff IH Q4H PRN PRN Reason: Shortness Of Breath Topiramate 50 mg PO BID traZODone [TraZODone] 50 mg PO HS PRN PRN Reason: Sleep Fluticasone Propionate [Flovent Hfa] 1 puff IH BID Montelukast [Singulair] 10 mg PO HS Cetirizine HCl [Zyrtec] 10 mg PO DAILY PRN #0 PRN Reason: Allergy Symptoms EPINEPHrine [Epipen] 0.3 mg IM ONCE PRN #1 kit PRN Reason: Allergic Reaction Changed Omeprazole [PriLOSEC] 40 mg PO DAILY #30 capsule.dr Discontinued Diltiazem CD (24hr) [Cardizem CD] 240 mg PO DAILY Sertraline [Zoloft] 50 mg PO HS Amlodipine Besylate 5 mg PO DAILY Metoprolol [Lopressor] 25 mg PO BID Sertraline [Zoloft] 100 mg PO HS Linaclotide [Linzess] 290 mcg PO DAILY OxyCODONE/APAP 5/325 [Percocet 5/325 MG] 1 each PO Q6HR PRN PRN Reason: Pain Home Medications: Montelukast [Singulair] 10 mg PO HS 05/22/15 [History] rOPINIRole [Requip] 1 mg PO DAILY 08/10/15 [History] Cholecalciferol (D-3) [Vitamin D] 5,000 unit PO BID 01/02/16 [History] Cyanocobalamin (Vitamin B-12) [Vitamin B12] 500 mcg PO BID 01/02/16 [History] Fluticasone Propionate Nasal [Flonase] 1 spray NS DAILY PRN 01/02/16 [History] Ondansetron HCl [Zofran] 4 mg PO Q6H PRN 01/02/16 [History] Cetirizine HCl [Zyrtec] 10 mg PO DAILY PRN #0 07/19/16 [Rx] Gabapentin [Neurontin] 800 mg PO TID 06/18/17 [History] clonazePAM [Klonopin] 0.5 mg PO BID PRN 06/18/17 [History] EPINEPHrine [Epipen] 0.3 mg IM ONCE PRN #1 kit 07/16/17 [Rx] Albuterol Sulfate [Ventolin Hfa] 2 puff IH Q4H PRN 11/19/18 [History] Cyclobenzaprine [Flexeril] 10 mg PO TID PRN 11/19/18 [History] Pravastatin Sodium [Pravachol] 40 mg PO HS 11/19/18 [History] Tiotropium Br/Olodaterol HCl [Stiolto Respimat Inhal Choudrant] 2 puff IH DAILY 11/19/18 [History] Topiramate 50 mg PO BID 11/19/18 [History] traZODone [TraZODone] 50 mg PO HS PRN 11/19/18 [History] Fluticasone Propionate [Flovent Hfa] 1 puff IH BID 12/27/18 [History] DULoxetine [Cymbalta] 30 mg PO DAILY #30 capsule. 12/29/18 [Rx] Metoprolol [Lopressor] 12.5 mg PO BID 30 Days #30 tablet 12/29/18 [Rx] Omeprazole [PriLOSEC] 40 mg PO DAILY #30 capsule. 12/29/18 [Rx] OxyCODONE/APAP 5/325 [Percocet 5/325 MG] 1 each PO Q6HR PRN 7 Days #28 tablet 12/29/18 [Rx] Polyethylene Glycol 3350 [MiraLAX] 17 gm PO DAILY #527 gm 12/29/18 [Rx] Rivaroxaban [Xarelto] 15 mg PO BID #0 tablet 12/29/18 [Rx] Allergies/Adverse Reactions: Allergy/AdvReac Type Severity Reaction Status Date / Time bee venom protein (honey bee) Allergy Anaphylaxis Verified 12/26/18 18:50 aspirin AdvReac Hives/Swell Verified 11/19/18 09:30 ing celecoxib [From Celebrex] AdvReac Hives/Shortness Verified 11/19/18 09:30 of Breath/Swelling mannitol [From Reclast] AdvReac Fever/Nause Verified 11/19/18 09:30 a/Vomiting meloxicam AdvReac Hives/Swell Verified 11/19/18 09:30 ing water for injection,sterile AdvReac Fever/Nause Verified 11/19/18 09:30 [From Reclast] a/Vomiting zoledronic acid AdvReac Fever/Nause Verified 11/19/18 09:30 [From Reclast] a/Vomiting Date of admission: 12/26/18 23:50 Primary care physician: PCP NONE Consults: 12/26/18 23:58 Consult to Cardiology [CONS] Routine Comment: Consulting Provider: Cardiology Rosita Reason for Consult: h/o PAF; now AFIB/RVR-->NSR; PE Call Completed: No Consult to Orthopedic Surgery [CONS] Routine Consulting Provider: Orthopedic and Sports Medicine Reason for Consult: Post-op wound check; PE Call Completed: No Discharging clinician: Daphne Diaz - Constitutional Vitals: Temp Pulse Resp BP Pulse Ox 98.1 F 66 15 109/68 92 12/29/18 07:18 12/29/18 07:18 12/29/18 07:18 12/29/18 07:18 12/29/18 07:18 General appearance: Present: cooperative, mild distress, A&O X 3, pleasant, no acute distress, answers questions appropriately Exam: GEN: NAD, A&O x 3, Pleasant and conversant SKIN: [place] warm acyanotic not jaundice HEART: Appears RRR, no murmurs LUNGS: CTA no wheeze or crackles, overall non labored ABDOMEN; Soft, non tender or distended, BS x 4 normactive EXT: No LE edema, Pedal pulses 1+, radial pulses 2+ PSYCH: Mood and affect is appropriate - Patient Status Disposition: Home, Self-Care Condition: Good Functional capacity at discharge: independent ambulation Overall status at discharge: patient is back to baseline - Discharge Instructions Instructions: Atrial Fibrillation (DC), Pulmonary Embolism (DC) Follow Up With: NONE,PCP [Primary Care Provider] - - Diet and Activity Activity: resume usual activities as tolerated Diet: low fat, low cholesterol, low salt diet
[2018-12-29] MEDS ORDERED: Tiotropium 18 MCG inhalation IH SCH (10:00)
== END 2018-12-29 13:51 | disposition home or self-care (01) | DRG 176 ==
LOC: 2NENU
PROVIDERS: ADMIT Pediatrics; ATTEND Pediatrics

== ENCOUNTER 2019-09-09 16:56 | Observation (INO) ==
[2019-09-09] MEDS ORDERED: Morphine Sulfate 2 MG/ML SYRINGE IVP ONE (20:18)
[2019-09-09] MEDS ORDERED: Naloxone 0.4 MG/ML INJ IVP PRN (20:37)
[2019-09-09] MEDS ORDERED: Ipratropium/Albuterol Neb 3 ML IH PRN (20:49)
[2019-09-09] MEDS ORDERED: Fluticasone Propionate Nasal 50 MCG/SPRAY BOTTLE NS PRN (21:05)
[2019-09-09] MEDS ORDERED: clonazePAM 0.5 MG TABLET PO PRN (21:05)
[2019-09-09] MEDS ORDERED: Loratadine 10 MG TABLET PO PRN (21:05)
[2019-09-09] MEDS ORDERED: tiZANidine 4 MG TABLET PO PRN (21:05)
[2019-09-09] MEDS: *HR* Heparin 5,000 UNIT/ML VIAL SQ SCH (21:50)
[2019-09-09] MEDS: Ondansetron 4 MG/2 ML VIAL IVP PRN (23:09)
[2019-09-10 02:14] LABS: Basophils # 0.1 K/mcL (0.0-0.2); Basophils % 0.6 %; Eosinophils # 0.1 K/mcL (0.0-0.6); Eosinophils % 1.5 %; Hemoglobin 11.6 g/dL (11.5-15.4); Immature Granulocytes % 0.3 % (0-4); Lymphocytes # 3.5 K/mcL (0.6-4.6); Lymphocytes % 43.4 %; Mean Corpuscular HGB Conc 32.2 g/dL (31.6-35.5); Mean Corpuscular Hemoglobin 30.1 pg (28.0-33.3); Mean Corpuscular Volume 93.5 fL (83.0-100.0); Mean Platelet Volume 10.2 fL (9.4-12.4); Monocytes # 0.6 K/mcL (0.0-1.3); Monocytes % 7.9 %; Neutrophils # 3.7 K/mcL (1.6-8.9); Platelet Count 260 K/mcL (140-400); Red Blood Count 3.85 M/mcL (3.82-4.97); Red Cell Distribution Width 12.3 % (11.5-14.5); Segmented Neutrophils % 46.3 %
[2019-09-10 02:16] LABS: Prothrombin Time 11.2 Seconds (9.4-12.1)
[2019-09-10 02:31] LABS: BUN/Creatinine Ratio 14 (6-26); Blood Urea Nitrogen 10 mg/dL (6-20); Calcium 8.6 mg/dL (8.6-10.3); Carbon Dioxide 22 mEq/L (23-29); Chloride 109 mEq/L (98-107); Chol/HDL Ratio 3.8 (0-4.9); Cholesterol 173 mg/dL (< 200); Glucose 86 mg/dL (70-105); HDL Cholesterol 46 mg/dL (40-59); LDL Cholesterol,Calculated 96 mg/dL (0-99); Magnesium 2.2 mg/dL (1.6-2.6); Osmolality,Calculated 286 (280-300); Phosphorous 3.5 mg/dL (2.7-4.5); Potassium 3.9 mEq/L (3.5-5.1); Sodium 139 mEq/L (136-145); Triglycerides 156 mg/dL (< 150); eGFR For African Americans > 60 (> 60); eGFR For Non-African Americans > 60 (> 60)
[2019-09-10] MEDS: *HR* Heparin 5,000 UNIT/ML VIAL SQ SCH ×2 (05:41→14:41)
[2019-09-10] MEDS: Gabapentin 400 MG CAPSULE PO SCH ×3 (08:52→19:55)
[2019-09-10] MEDS: Cholecalciferol (D-3) 1,000 UNIT (25MCG) TABLET PO SCH (08:53)
[2019-09-10] MEDS ORDERED: LINACLOTIDE PO SCH (09:00)
[2019-09-10] MEDS: Acetaminophen 325 MG TABLET PO PRN (11:21)
[2019-09-10] MEDS: Ondansetron 4 MG/2 ML VIAL IVP PRN (14:10)
[2019-09-10] MEDS: *HR* Promethazine 25 MG/ML VIAL IVP PRN (19:56)
[2019-09-10] MEDS ORDERED: rOPINIRole 1 MG TABLET PO SCH (21:00)
[2019-09-11] MEDS: *HR* Heparin 5,000 UNIT/ML VIAL SQ SCH ×2 (00:08→05:51)
[2019-09-11 07:10] VITALS: BP 118/78
[2019-09-11] MEDS: *HR* Promethazine 25 MG/ML VIAL IVP PRN (07:40)
[2019-09-11] MEDS: Acetaminophen 325 MG TABLET PO PRN (07:45)
[2019-09-11] MEDS: Gabapentin 400 MG CAPSULE PO SCH (07:45)
[2019-09-11] MEDS: Cholecalciferol (D-3) 1,000 UNIT (25MCG) TABLET PO SCH (07:45)
== END 2019-09-11 10:38 | disposition home or self-care (01) ==
LOC: 3BNU → SUATTDRO 18:00 → 3BNU 18:16
PROVIDERS: ADMIT Student in an Organized Health Care Education/Training Program; ATTEND Student in an Organized Health Care Education/Training Program

== ENCOUNTER 2019-12-02 10:04 | Inpatient (IN) ==
[2019-12-02] MEDS ORDERED: *HR* Propofol 200 MG/20 ML VIAL IVP ONE ×2 (10:31→11:02)
[2019-12-02] MEDS ORDERED: Lidocaine -MPF 2% 2 ML VIAL ONE (10:32)
[2019-12-02] MEDS ORDERED: Ondansetron 4 MG/2 ML VIAL ONE (10:32)
[2019-12-02] MEDS ORDERED: Dexamethasone 4 MG/ML VIAL ONE (10:32)
[2019-12-02] MEDS ORDERED: Acetaminophen IV 1,000 MG/100 ML BAG IVPB ONE (10:38)
[2019-12-02] MEDS ORDERED: *HR* OxyCODONE Immed Rel 5 MG TABLET PO PRN (10:39)
[2019-12-02] MEDS ORDERED: Ondansetron 4 MG/2 ML VIAL IVP ONE (10:39)
[2019-12-02] MEDS ORDERED: *HR* Promethazine 25 MG/ML VIAL IVP PRN (10:39)
[2019-12-02] MEDS ORDERED: Ropivacaine/PF 0.5% 30 ML VIAL ONE (11:13)
[2019-12-02] MEDS ORDERED: ROPIVACAINE/PF/NS 0.25% 1 EACH SYRINGE INTRAART ONE (11:13)
[2019-12-02] MEDS ORDERED: *HR* FentaNYL (PF) 100 MCG/2 ML VIAL ONE ×2 (11:14→13:19)
[2019-12-02] MEDS ORDERED: *HR* Midazolam HCl 2 MG/2 ML VIAL ONE (11:14)
[2019-12-02] MEDS ORDERED: CeFAZolin Syr 2,000MG/20 ML 2,000 MG/20 ML SYRINGE IVPB ONE (11:22)
[2019-12-02] MEDS ORDERED: Vancomycin 1,000 MG VIAL ONE (11:42)
[2019-12-02] MEDS ORDERED: Ethanol\\Acetic Acid\\Na Ace\\Ben 1,000 ML IRRIG.SOLN IR ONE (11:42)
[2019-12-02] MEDS: *HR* HYDROmorphone PF 0.5 MG/0.5 ML SYRINGE IVP PRN ×2 (13:41→13:57)
[2019-12-02 14:08] LABS: Hemoglobin 11.9 g/dL (11.5-15.4)
[2019-12-02] MEDS ORDERED: *HR* OxyCODONE/APAP 5/325 TABLET PO PRN (14:35)
[2019-12-02] MEDS ORDERED: tiZANidine 4 MG TABLET PO PRN (14:35)
[2019-12-02] MEDS ORDERED: D5% in Water 1,000 ML IVC PRN (14:35)
[2019-12-02] MEDS ORDERED: (Linaclotide [Linzess] 290 MCG) PO SCH (14:35)
[2019-12-02] MEDS ORDERED: Cyanocobalamin (B-12) 1,000 MCG/ML VIAL IM SCH (14:35)
[2019-12-02] MEDS ORDERED: *HR* Dextrose 50 % in Water (Vial) 50 ML VIAL IVP PRN (14:35)
[2019-12-02] MEDS ORDERED: MOM Conc 10 ML UD.LIQ PO PRN (14:35)
[2019-12-02] MEDS ORDERED: Fluticasone Propionate Nasal 50 MCG/SPRAY BOTTLE NS PRN (14:35)
[2019-12-02] MEDS ORDERED: Naloxone 0.4 MG/ML INJ IVP PRN (14:35)
[2019-12-02] MEDS ORDERED: Sennosides 8.6 MG TABLET PO PRN (14:35)
[2019-12-02] MEDS ORDERED: clonazePAM 0.5 MG TABLET PO PRN (14:35)
[2019-12-02] MEDS ORDERED: Ondansetron 4 MG/2 ML VIAL IVP PRN (14:35)
[2019-12-02] MEDS ORDERED: Dextrose Gel 15 GM/37.5 ML TUBE PO PRN ×2 (14:35)
[2019-12-02] MEDS ORDERED: EPINEPHrine 1 MG/ML VIAL IM PRN (14:35)
[2019-12-02] MEDS: Insulin LISPRO 300 UNITS/3 ML VIAL SQ SCH ×2 (15:06→17:22)
[2019-12-02] MEDS ORDERED: Ipratropium/Albuterol Neb 3 ML IH PRN (16:00)
[2019-12-02] MEDS: Scopolamine Patch 1.5 MG PATCH.TD72 TD SCH ×2 (17:23→18:07)
[2019-12-02] MEDS ORDERED: *HR* Enoxaparin 30 MG/0.3 ML SYRINGE SQ SCH ×2 (18:00)
[2019-12-02] MEDS: *HR* OxyCODONE Immed Rel 5 MG TABLET PO PRN ×2 (18:03→22:01)
[2019-12-02] MEDS ORDERED: Insulin LISPRO 300 UNITS/3 ML VIAL SQ SCH (21:00)
[2019-12-02] MEDS ORDERED: rOPINIRole 1 MG TABLET PO SCH (21:00)
[2019-12-02] MEDS: Gabapentin 400 MG CAPSULE PO SCH (21:33)
[2019-12-02] MEDS: CeFAZolin 2 GM/120 ML BAG IVPB SCH (23:33)
[2019-12-03] MEDS: *HR* OxyCODONE Immed Rel 5 MG TABLET PO PRN ×3 (04:17→14:50)
[2019-12-03 06:41] LABS: Hematocrit 33.8 % (35.3-44.9); Hemoglobin 10.7 g/dL (11.5-15.4)
[2019-12-03 07:00] LABS: BUN/Creatinine Ratio 20 (6-26); Blood Urea Nitrogen 15 mg/dL (6-20); Calcium 8.5 mg/dL (8.6-10.3); Carbon Dioxide 28 mEq/L (23-29); Chloride 103 mEq/L (98-107); Glucose 109 mg/dL (70-105); Osmolality,Calculated 281 (280-300); Sodium 135 mEq/L (136-145); eGFR For African Americans > 60 (> 60); eGFR For Non-African Americans > 60 (> 60)
[2019-12-03] MEDS: Ringers Solution, Lactated 1,000 ML IVC SCH ×2 (07:22→07:23)
[2019-12-03] MEDS: Insulin LISPRO 300 UNITS/3 ML VIAL SQ SCH ×2 (07:26→11:44)
[2019-12-03] MEDS: CeFAZolin 2 GM/120 ML BAG IVPB SCH (08:53)
[2019-12-03] MEDS: Gabapentin 400 MG CAPSULE PO SCH (08:56)
[2019-12-03] MEDS ORDERED: *HR* Rivaroxaban 10 MG TABLET PO SCH (09:00)
[2019-12-03] MEDS ORDERED: Loratadine 10 MG TABLET PO SCH (09:00)
[2019-12-03] MEDS ORDERED: DilTIAZem CD (24hr) 120 MG CAP.ER.24H PO SCH (09:00)
[2019-12-03] MEDS ORDERED: NON-FORMULARY MEDICATION 1 EACH EACH (Tiotropium Br/Olodaterol Hcl [Stiolto Respimat Inhal IH SCH (09:00)
[2019-12-03] MEDS ORDERED: Tiotropium 18 MCG inhalation IH SCH (10:00)
[2019-12-03 10:36] VITALS: BP 117/79
[2019-12-03] MEDS: Albuterol 2.5 MG/3 ML NEBULIZER IH SCH ×2 (11:13→15:39)
[2019-12-03] MEDS ORDERED: Vancomycin (wt based) 1,000 MG VIAL IV ONE (13:50)
[2019-12-05] MEDS ORDERED: Cholecalciferol (D-3) 1,000 UNIT (25MCG) TABLET PO SCH (09:00)
== END 2019-12-03 16:35 | disposition home health service (06) | DRG 483 ==
LOC: SAMDAY 10:04 → 3NENU 15:10
PROVIDERS: ADMIT Orthopaedic Surgery; ATTEND Orthopaedic Surgery

== ENCOUNTER 2019-12-05 22:24 | Observation (INO) ==
[2019-12-06] MEDS ORDERED: Acetaminophen 325 MG TABLET PO PRN (01:08)
[2019-12-06] MEDS ORDERED: Naloxone 0.4 MG/ML INJ IVP PRN (01:08)
[2019-12-06] MEDS ORDERED: *HR* Promethazine 25 MG/ML VIAL IVP PRN (01:08)
[2019-12-06] MEDS ORDERED: (Linaclotide [Linzess] 290 MCG) PO SCH (01:45)
[2019-12-06] MEDS ORDERED: EPINEPHrine 1 MG/ML VIAL IM PRN (01:45)
[2019-12-06] MEDS ORDERED: Ipratropium/Albuterol Neb 3 ML IH PRN (01:45)
[2019-12-06] MEDS ORDERED: Fluticasone Propionate Nasal 50 MCG/SPRAY BOTTLE NS PRN (01:45)
[2019-12-06] MEDS ORDERED: clonazePAM 0.5 MG TABLET PO PRN (01:45)
[2019-12-06] MEDS ORDERED: NON-FORMULARY MEDICATION 1 EACH EACH (Rivaroxaban [Xarelto] 20 MG) PO SCH (01:47)
[2019-12-06] MEDS ORDERED: *HR* Heparin 5,000 UNIT/ML VIAL IVP ONE (02:09)
[2019-12-06] MEDS ORDERED: Heparin 25,000 UNIT/250 ML D5W 25,000 UNIT/250 ML IV.SOLN IVC SCH (02:15)
[2019-12-06] MEDS: *HR* OxyCODONE Immed Rel 5 MG TABLET PO PRN ×2 (02:52→08:42)
[2019-12-06 03:00] LABS: Basophils % 0.3 %; Eosinophils # 0.1 K/mcL (0.0-0.6); Eosinophils % 0.8 %; Hematocrit 29.4 % (35.3-44.9); Hemoglobin 9.6 g/dL (11.5-15.4); Immature Granulocytes % 0.4 % (0-4); Lymphocytes # 2.1 K/mcL (0.6-4.6); Lymphocytes % 21.3 %; Mean Corpuscular HGB Conc 32.7 g/dL (31.6-35.5); Mean Corpuscular Hemoglobin 29.9 pg (28.0-33.3); Mean Corpuscular Volume 91.6 fL (83.0-100.0); Mean Platelet Volume 9.5 fL (9.4-12.4); Monocytes # 0.7 K/mcL (0.0-1.3); Monocytes % 7.4 %; Neutrophils # 6.9 K/mcL (1.6-8.9); Platelet Count 226 K/mcL (140-400); Red Blood Count 3.21 M/mcL (3.82-4.97); Red Cell Distribution Width 12.9 % (11.5-14.5); Segmented Neutrophils % 69.8 %; White Blood Count 9.9 K/mcL (4.3-11.1)
[2019-12-06 03:04] LABS: Prothrombin Time 11.5 Seconds (9.4-12.1)
[2019-12-06 03:05] LABS: Heparin anti-factor XA UFH 0.05 IU/mL (0.30-0.70)
[2019-12-06 03:07] LABS: Activated Partial Thrombo Time 28.5 Seconds (26.0-36.0)
[2019-12-06 03:20] LABS: Alanine Aminotransferase 39 Units/L (7-52); Albumin 3.1 g/dL (3.5-5.7); Albumin/Globulin Ratio 1.3 (1.1-2.2); Alkaline Phosphatase 70 Units/L (34-104); Aspartate Amino Transferase 18 Units/L (13-39); BUN/Creatinine Ratio 22 (6-26); Bilirubin,Total 0.5 mg/dL (0.3-1.0); Blood Urea Nitrogen 13 mg/dL (6-20); Calcium 7.5 mg/dL (8.6-10.3); Carbon Dioxide 21 mEq/L (23-29); Chloride 106 mEq/L (98-107); Chol/HDL Ratio 2.8 (0-4.9); Cholesterol 148 mg/dL (< 200); Globulin 2.3 g/dL (2.4-3.5); Glucose 102 mg/dL (70-105); HDL Cholesterol 53 mg/dL (40-59); LDL Cholesterol,Calculated 79 mg/dL (< 100); Magnesium 2.2 mg/dL (1.6-2.6); Osmolality,Calculated 280 (280-300); Phosphorous 3.3 mg/dL (2.7-4.5); Potassium 3.8 mEq/L (3.5-5.1); Sodium 135 mEq/L (136-145); Total Protein 5.4 g/dL (6.4-8.9); Triglycerides 78 mg/dL (< 150); eGFR For African Americans > 60 (> 60); eGFR For Non-African Americans > 60 (> 60)
[2019-12-06] MEDS ORDERED: DilTIAZem 50 MG/50 ML IV.SOLN IVC SCH (04:45)
[2019-12-06] MEDS ORDERED: Gabapentin 400 MG CAPSULE PO SCH (09:00)
[2019-12-06] MEDS ORDERED: Loratadine 10 MG TABLET PO SCH (09:00)
[2019-12-06] MEDS ORDERED: DilTIAZem CD (24hr) 120 MG CAP.ER.24H PO SCH (09:00)
[2019-12-06 11:12] VITALS: BP 96/58
[2019-12-06] MEDS ORDERED: *HR* Rivaroxaban 10 MG TABLET PO SCH (12:00)
[2019-12-06] MEDS ORDERED: rOPINIRole 1 MG TABLET PO SCH (21:00)
== END 2019-12-06 13:20 | disposition home or self-care (01) ==
LOC: 3BNU → SUATTDRO 23:41
PROVIDERS: ADMIT Student in an Organized Health Care Education/Training Program; ATTEND Internal Medicine

== ENCOUNTER 2020-03-20 11:42 | Observation (INO) ==
[2020-03-20 12:21] LABS: BUN/Creatinine Ratio 13 (6-26); Blood Urea Nitrogen 11 mg/dL (6-20); Calcium 9.2 mg/dL (8.6-10.3); Carbon Dioxide 26 mEq/L (23-29); Chloride 109 mEq/L (98-107); Glucose 93 mg/dL (70-105); Osmolality,Calculated 291 (280-300); Potassium 3.8 mEq/L (3.5-5.1); Sodium 141 mEq/L (136-145); eGFR For African Americans > 60 (> 60); eGFR For Non-African Americans > 60 (> 60)
[2020-03-20] MEDS ORDERED: clonazePAM 0.5 MG TABLET PO PRN (12:31)
[2020-03-20] MEDS ORDERED: Fluticasone Propionate Nasal 50 MCG/SPRAY BOTTLE NS PRN (12:31)
[2020-03-20] MEDS ORDERED: EPINEPHrine 1 MG/ML VIAL IM PRN (12:31)
[2020-03-20] MEDS ORDERED: Ipratropium/Albuterol Neb 3 ML IH PRN (12:31)
[2020-03-20] MEDS ORDERED: Cyanocobalamin (B-12) 1,000 MCG/ML VIAL IM SCH (12:45)
[2020-03-20] MEDS: *HR* Rivaroxaban 10 MG TABLET PO SCH (16:33)
[2020-03-20] MEDS: Ondansetron ODT 4 MG TAB.RAPDIS PO PRN (17:50)
[2020-03-20] MEDS: Gabapentin 400 MG CAPSULE PO SCH (22:12)
[2020-03-20] MEDS: rOPINIRole 1 MG TABLET PO SCH (22:13)
[2020-03-21] MEDS: Loratadine 10 MG TABLET PO SCH ×2 (08:18→08:34)
[2020-03-21] MEDS: DilTIAZem CD (24hr) 120 MG CAP.ER.24H PO SCH (08:18)
[2020-03-21] MEDS: Gabapentin 400 MG CAPSULE PO SCH ×2 (08:19→20:24)
[2020-03-21] MEDS: (Linaclotide [Linzess] 290 MCG) PO SCH (08:19)
[2020-03-21] MEDS: lisinopriL 20 MG TABLET PO SCH (08:23)
[2020-03-21] MEDS: Ondansetron ODT 4 MG TAB.RAPDIS PO PRN ×2 (08:26→19:24)
[2020-03-21] MEDS: Acetaminophen 325 MG TABLET PO PRN (16:48)
[2020-03-21] MEDS: *HR* Rivaroxaban 10 MG TABLET PO SCH (16:48)
[2020-03-21] MEDS: rOPINIRole 1 MG TABLET PO SCH (20:24)
[2020-03-22] MEDS: Ondansetron ODT 4 MG TAB.RAPDIS PO PRN (09:22)
[2020-03-22] MEDS: Gabapentin 400 MG CAPSULE PO SCH (09:23)
[2020-03-22] MEDS: Loratadine 10 MG TABLET PO SCH (09:23)
[2020-03-22] MEDS: DilTIAZem CD (24hr) 120 MG CAP.ER.24H PO SCH (09:23)
[2020-03-22] MEDS: lisinopriL 20 MG TABLET PO SCH (09:24)
[2020-03-22] MEDS: Acetaminophen 325 MG TABLET PO PRN (09:28)
[2020-03-22] MEDS: (Linaclotide [Linzess] 290 MCG) PO SCH (09:36)
[2020-03-22 12:35] VITALS: BP 112/71
== END 2020-03-22 14:00 | disposition home or self-care (01) ==
LOC: 2ANU
PROVIDERS: ADMIT Internal Medicine Clinical Cardiac Electrophysiology; ATTEND Internal Medicine Clinical Cardiac Electrophysiology

== ENCOUNTER 2020-09-17 06:44 | Observation (INO) ==
[2020-09-17] MEDS ORDERED: 0.9 % Sodium Chloride 1,000 ML ONE ×3 (07:41→11:59)
[2020-09-17] MEDS ORDERED: Scopolamine Patch 1.5 MG PATCH.TD72 TD ONE (07:44)
[2020-09-17] MEDS ORDERED: *HR* Metoprolol 5 MG/5 ML VIAL IVP PRN (07:55)
[2020-09-17] MEDS ORDERED: *HR* FentaNYL (PF) 100 MCG/2 ML VIAL IVP PRN (07:55)
[2020-09-17] MEDS ORDERED: Albuterol 2.5 MG/3 ML NEBULIZER IH PRN (07:55)
[2020-09-17] MEDS ORDERED: Promethazine 6.25 MG in Water for inj. (sterile) 20 ML IVPB PRN (07:55)
[2020-09-17] MEDS ORDERED: *HR* OxyCODONE Immed Rel 5 MG TABLET PO PRN (07:55)
[2020-09-17] MEDS ORDERED: Ondansetron 4 MG/2 ML VIAL IVP PRN (07:55)
[2020-09-17] MEDS ORDERED: Protamine Sulfate 50 MG/5 ML VIAL IVP ONE (08:03)
[2020-09-17] MEDS ORDERED: *HR* Heparin 10,000 UNIT/10 ML VIAL ONE (08:04)
[2020-09-17] MEDS ORDERED: Heparin 1,000 UNITS/500 mL 2,000 ML ONE (08:04)
[2020-09-17] MEDS ORDERED: ISOVUE-370 200 ML INFUS..BTL ONE (09:41)
[2020-09-17] MEDS ORDERED: Naloxone 0.4 MG/ML INJ IVP PRN (11:14)
[2020-09-17] MEDS ORDERED: Scopolamine Patch 1.5 MG PATCH.TD72 TD PRN (11:18)
[2020-09-17] MEDS ORDERED: Nitroglycerin 0.4 MG TAB.SUBL SL PRN (11:18)
[2020-09-17] MEDS ORDERED: clonazePAM 0.5 MG TABLET PO PRN (11:18)
[2020-09-17] MEDS ORDERED: Fluticasone Propionate Nasal 50 MCG/SPRAY BOTTLE NS PRN (11:18)
[2020-09-17] MEDS ORDERED: Ipratropium/Albuterol Neb 3 ML IH PRN (11:18)
[2020-09-17] MEDS ORDERED: *HR* Phenylephrine 10 MG/ML VIAL IVC ONE (13:20)
[2020-09-17] MEDS ORDERED: Ondansetron 4 MG/2 ML VIAL IVP ONE (13:20)
[2020-09-17] MEDS ORDERED: Lidocaine -MPF 4% 5 ML AMPUL TP ONE (13:20)
[2020-09-17] MEDS ORDERED: Lidocaine -MPF 2% 5 ML VIAL SQ ONE (13:20)
[2020-09-17] MEDS ORDERED: *HR* Propofol 200 MG/20 ML VIAL IVP ONE (13:20)
[2020-09-17] MEDS ORDERED: *HR* Succinylcholine 200 MG/10 ML VIAL IVP ONE (13:20)
[2020-09-17] MEDS: tiZANidine 4 MG TABLET PO SCH ×2 (16:15→19:26)
[2020-09-17] MEDS: Ondansetron ODT 4 MG TAB.RAPDIS PO PRN (17:28)
[2020-09-17] MEDS: Gabapentin 400 MG CAPSULE PO SCH (19:26)
[2020-09-17] MEDS ORDERED: rOPINIRole 1 MG TABLET PO SCH (21:00)
[2020-09-17] MEDS ORDERED: Mirtazapine 15 MG TABLET PO SCH (21:00)
[2020-09-18] MEDS: Ondansetron ODT 4 MG TAB.RAPDIS PO PRN (08:02)
[2020-09-18] MEDS: tiZANidine 4 MG TABLET PO SCH ×2 (08:03→15:45)
[2020-09-18] MEDS: Gabapentin 400 MG CAPSULE PO SCH (08:03)
[2020-09-18] MEDS ORDERED: Loratadine 10 MG TABLET PO SCH (09:00)
[2020-09-18] MEDS ORDERED: *HR* Rivaroxaban 10 MG TABLET PO SCH (09:00)
[2020-09-18] MEDS ORDERED: DilTIAZem CD (24hr) 120 MG CAP.ER.24H PO SCH (09:00)
[2020-09-18] MEDS ORDERED: Tiotropium 10 INH DOSE IH SCH (10:00)
[2020-09-18] MEDS ORDERED: Budesonide/Formoterol 160/4.5 1 PUFF INH IH SCH (10:00)
[2020-09-18] MEDS ORDERED: 0.9 % Sodium Chloride 500 ML IVC ONE ×2 (10:35→13:23)
[2020-09-18 16:25] VITALS: BP 116/71
[2020-10-01] MEDS ORDERED: Cyanocobalamin (B-12) 1,000 MCG/ML VIAL IM SCH (09:00)
== END 2020-09-18 16:27 | disposition home or self-care (01) ==
LOC: INVDIALAB 06:44 → ICNU 06:44
PROVIDERS: ADMIT Internal Medicine Clinical Cardiac Electrophysiology; ATTEND Internal Medicine Clinical Cardiac Electrophysiology

== ENCOUNTER 2020-10-06 15:12 | Inpatient (IN) ==
[2020-10-06] MEDS ORDERED: Furosemide 20 MG/2 ML VIAL IVP ONE (15:37)
[2020-10-06] MEDS ORDERED: Potassium Chloride Elixir 20 MEQ/15 ML UDC PO ONE (15:37)
[2020-10-06 16:06] LABS: Basophils # 0.1 K/mcL (0.0-0.2); Eosinophils # 0.1 K/mcL (0.0-0.6); Eosinophils % 1.4 %; Hematocrit 33.8 % (35.3-44.9); Hemoglobin 10.9 g/dL (11.5-15.4); Immature Granulocytes % 0.3 % (0-4); Lymphocytes # 2.2 K/mcL (0.6-4.6); Lymphocytes % 32.1 %; Mean Corpuscular HGB Conc 32.2 g/dL (31.6-35.5); Mean Corpuscular Volume 93.1 fL (83.0-100.0); Mean Platelet Volume 9.2 fL (9.4-12.4); Monocytes # 0.6 K/mcL (0.0-1.3); Monocytes % 8.8 %; Neutrophils # 3.9 K/mcL (1.6-8.9); Platelet Count 302 K/mcL (140-400); Red Blood Count 3.63 M/mcL (3.82-4.97); Red Cell Distribution Width 13.4 % (11.5-14.5); Segmented Neutrophils % 56.4 %
[2020-10-06 16:23] LABS: Alanine Aminotransferase 8 Units/L (7-52); Albumin 3.7 g/dL (3.5-5.7); Albumin/Globulin Ratio 1.5 (1.1-2.2); Alkaline Phosphatase 55 Units/L (34-104); Aspartate Amino Transferase 10 Units/L (13-39); BUN/Creatinine Ratio 8 (6-26); Bilirubin,Direct 0.1 mg/dL (0.0-0.2); Bilirubin,Indirect 0.2 mg/dL (0.0-1.0); Bilirubin,Total 0.3 mg/dL (0.3-1.0); Blood Urea Nitrogen 7 mg/dL (6-20); Calcium 8.4 mg/dL (8.6-10.3); Carbon Dioxide 22 mEq/L (23-29); Chloride 109 mEq/L (98-107); Globulin 2.5 g/dL (2.4-3.5); Glucose 95 mg/dL (70-105); Osmolality,Calculated 286 (280-300); Potassium 3.6 mEq/L (3.5-5.1); Sodium 139 mEq/L (136-145); Total Protein 6.2 g/dL (6.4-8.9); eGFR For African Americans > 60 (> 60); eGFR For Non-African Americans > 60 (> 60)
[2020-10-06 16:24] LABS: Troponin I < 0.03 ng/mL (< 0.04)
[2020-10-06] MEDS ORDERED: Naloxone 0.4 MG/ML INJ IVP PRN (17:14)
[2020-10-06] MEDS ORDERED: Ipratropium/Albuterol Neb 3 ML IH PRN (17:18)
[2020-10-06] MEDS ORDERED: Nitroglycerin 0.4 MG TAB.SUBL SL PRN (17:36)
[2020-10-06] MEDS ORDERED: clonazePAM 0.5 MG TABLET PO PRN (17:56)
[2020-10-06] MEDS ORDERED: tiZANidine 4 MG TABLET PO PRN (17:56)
[2020-10-06] MEDS: Doxycycline 100 MG in 0.9 % Sodium Chloride Mini Bag 100 ML IVPB SCH (18:41)
[2020-10-06] MEDS: MethylPREDNISolone 40 MG/ML VIAL IVP SCH (18:41)
[2020-10-06] MEDS: *HR* Rivaroxaban 10 MG TABLET PO SCH (19:17)
[2020-10-06] MEDS: rOPINIRole 1 MG TABLET PO SCH (19:17)
[2020-10-06] MEDS: Gabapentin 400 MG CAPSULE PO SCH (19:17)
[2020-10-06] MEDS: Mirtazapine 15 MG TABLET PO SCH (19:17)
[2020-10-06] MEDS: Ondansetron 4 MG/2 ML VIAL IVP PRN (20:09)
[2020-10-06] MEDS: Ipratropium/Albuterol Neb 3 ML IH SCH ×2 (20:16→23:39)
[2020-10-06] MEDS ORDERED: DilTIAZem CD (24hr) 180 MG CAP.ER.24H PO SCH (21:00)
[2020-10-06] MEDS ORDERED: Furosemide 40 MG/4 ML VIAL IVP SCH (21:00)
[2020-10-07] MEDS: Ipratropium/Albuterol Neb 3 ML IH SCH ×6 (03:14→23:46)
[2020-10-07] MEDS ORDERED: Doxycycline 100 MG VIAL ONE (04:16)
[2020-10-07] MEDS: Doxycycline 100 MG in 0.9 % Sodium Chloride Mini Bag 100 ML IVPB SCH ×2 (05:00→16:44)
[2020-10-07] MEDS: MethylPREDNISolone 40 MG/ML VIAL IVP SCH ×2 (05:00→16:43)
[2020-10-07] MEDS: Ondansetron 4 MG/2 ML VIAL IVP PRN ×2 (05:15→14:35)
[2020-10-07 07:35] LABS: BUN/Creatinine Ratio 11 (6-26); Blood Urea Nitrogen 10 mg/dL (6-20); Calcium 8.7 mg/dL (8.6-10.3); Carbon Dioxide 22 mEq/L (23-29); Chloride 105 mEq/L (98-107); Glucose 188 mg/dL (70-105); Magnesium 1.8 mg/dL (1.6-2.6); Osmolality,Calculated 292 (280-300); Phosphorous 2.1 mg/dL (2.7-4.5); Potassium 3.8 mEq/L (3.5-5.1); Sodium 139 mEq/L (136-145); eGFR For African Americans > 60 (> 60); eGFR For Non-African Americans > 60 (> 60)
[2020-10-07] MEDS ORDERED: Albumin 25% 25gram/100mL 25 GM/100 ML IV.SOLN IVPB STA (08:06)
[2020-10-07] MEDS: Gabapentin 400 MG CAPSULE PO SCH ×2 (08:46→20:03)
[2020-10-07] MEDS: *HR* Rivaroxaban 10 MG TABLET PO SCH (16:44)
[2020-10-07] MEDS: Mirtazapine 15 MG TABLET PO SCH (20:02)
[2020-10-07] MEDS: rOPINIRole 1 MG TABLET PO SCH (20:03)
[2020-10-08] MEDS: Ondansetron 4 MG/2 ML VIAL IVP PRN ×3 (01:37→12:19)
[2020-10-08] MEDS: Ipratropium/Albuterol Neb 3 ML IH SCH ×6 (03:32→23:31)
[2020-10-08] MEDS: MethylPREDNISolone 40 MG/ML VIAL IVP SCH ×2 (04:43→16:41)
[2020-10-08] MEDS: Doxycycline 100 MG in 0.9 % Sodium Chloride Mini Bag 100 ML IVPB SCH ×2 (04:44→16:42)
[2020-10-08] MEDS ORDERED: Acetaminophen 325 MG TABLET PO ONE (04:45)
[2020-10-08 06:21] LABS: BUN/Creatinine Ratio 18 (6-26); Blood Urea Nitrogen 14 mg/dL (6-20); Calcium 9.2 mg/dL (8.6-10.3); Carbon Dioxide 23 mEq/L (23-29); Chloride 108 mEq/L (98-107); Glucose 203 mg/dL (70-105); Osmolality,Calculated 292 (280-300); Potassium 3.8 mEq/L (3.5-5.1); Sodium 138 mEq/L (136-145); eGFR For African Americans > 60 (> 60); eGFR For Non-African Americans > 60 (> 60)
[2020-10-08] MEDS: Gabapentin 400 MG CAPSULE PO SCH ×2 (08:05→21:15)
[2020-10-08] MEDS ORDERED: Menthol 1 EACH LOZENGE PO PRN (08:31)
[2020-10-08 09:57] LABS: Adenovirus Not Detected (Not Detect); Bordetella Pertussis Not Detected (Not Detect); Coronavirus 229E Not Detected (Not Detect); Coronavirus HKU1 Not Detected (Not Detect); Coronavirus NL63 Not Detected (Not Detect); Coronavirus OC43 Not Detected (Not Detect); Human Metapneumovirus Not Detected (Not Detect); Human Rhinovirus/Enterovirus Not Detected (Not Detect); Influenza A Subtype 2009 H1 Not Detected (Not Detect); Influenza B Not Detected (Not Detect); Parainfluenza Virus 1 Not Detected (Not Detect); Parainfluenza Virus 2 Not Detected (Not Detect); Parainfluenza Virus 3 Not Detected (Not Detect); Parainfluenza Virus 4 Not Detected (Not Detect); Respiratory Syncytial Virus Not Detected (Not Detect); SARS-CoV-2 Not Detected (Not Detect)
[2020-10-08 09:58] LABS: Chlamydophila pneumoniae Not Detected (Not Detect); Mycoplasma pneumoniae Not Detected (Not Detect)
[2020-10-08] MEDS ORDERED: Perflutren Lipid Microsphere 1.3 ML in 0.9 % Sodium Chloride 8.7 ML IVP PRN (10:57)
[2020-10-08] MEDS: clonazePAM 0.5 MG TABLET PO PRN (11:41)
[2020-10-08] MEDS: *HR* Rivaroxaban 10 MG TABLET PO SCH (16:41)
[2020-10-08] MEDS: rOPINIRole 1 MG TABLET PO SCH (21:15)
[2020-10-08] MEDS: Mirtazapine 15 MG TABLET PO SCH (21:15)
[2020-10-08 23:11] LABS: Hematocrit 33.6 % (35.3-44.9); Hemoglobin 10.5 g/dL (11.5-15.4)
[2020-10-09] MEDS: Ipratropium/Albuterol Neb 3 ML IH SCH ×6 (03:34→23:42)
[2020-10-09] MEDS: MethylPREDNISolone 40 MG/ML VIAL IVP SCH (05:07)
[2020-10-09] MEDS: Doxycycline 100 MG in 0.9 % Sodium Chloride Mini Bag 100 ML IVPB SCH ×2 (05:08→16:20)
[2020-10-09 05:32] LABS: % Iron Saturation 22 % (15-50); BUN/Creatinine Ratio 23 (6-26); Blood Urea Nitrogen 16 mg/dL (6-20); Calcium 8.9 mg/dL (8.6-10.3); Carbon Dioxide 25 mEq/L (23-29); Chloride 108 mEq/L (98-107); Glucose 129 mg/dL (70-105); Iron 65 mcg/dL (50-170); Osmolality,Calculated 295 (280-300); Potassium 4.1 mEq/L (3.5-5.1); Sodium 141 mEq/L (136-145); Transferrin 214 mg/dL (203-362); eGFR For African Americans > 60 (> 60); eGFR For Non-African Americans > 60 (> 60)
[2020-10-09 05:49] LABS: Ferritin 37 ng/mL (10-120)
[2020-10-09 05:56] LABS: Folate 10.5 ng/mL (3.0-16.0)
[2020-10-09] MEDS ORDERED: Regadenoson 0.4 MG/5 ML SYRINGE IVP ONE (06:20)
[2020-10-09] MEDS: Gabapentin 400 MG CAPSULE PO SCH ×2 (09:46→21:29)
[2020-10-09] MEDS: clonazePAM 0.5 MG TABLET PO PRN (12:38)
[2020-10-09] MEDS: Ondansetron 4 MG/2 ML VIAL IVP PRN (13:42)
[2020-10-09] MEDS: *HR* Rivaroxaban 10 MG TABLET PO SCH (16:20)
[2020-10-09] MEDS: rOPINIRole 1 MG TABLET PO SCH (21:29)
[2020-10-09] MEDS: Mirtazapine 15 MG TABLET PO SCH (21:29)
[2020-10-09] MEDS ORDERED: *HR* LORazepam 2 MG/ML VIAL IVP ONE (21:53)
[2020-10-10 02:09] LABS: Basophils % 0.1 %; Hematocrit 31.5 % (35.3-44.9); Hemoglobin 10.1 g/dL (11.5-15.4); Lymphocytes # 2.2 K/mcL (0.6-4.6); Lymphocytes % 20.9 %; Mean Corpuscular HGB Conc 32.1 g/dL (31.6-35.5); Mean Corpuscular Hemoglobin 30.3 pg (28.0-33.3); Mean Corpuscular Volume 94.6 fL (83.0-100.0); Mean Platelet Volume 9.5 fL (9.4-12.4); Monocytes # 0.7 K/mcL (0.0-1.3); Neutrophils # 7.3 K/mcL (1.6-8.9); Platelet Count 291 K/mcL (140-400); Red Blood Count 3.33 M/mcL (3.82-4.97); Red Cell Distribution Width 14.1 % (11.5-14.5); White Blood Count 10.3 K/mcL (4.3-11.1)
[2020-10-10 02:25] LABS: BUN/Creatinine Ratio 21 (6-26); Blood Urea Nitrogen 16 mg/dL (6-20); Carbon Dioxide 26 mEq/L (23-29); Chloride 107 mEq/L (98-107); Glucose 95 mg/dL (70-105); Osmolality,Calculated 291 (280-300); Potassium 3.6 mEq/L (3.5-5.1); Sodium 140 mEq/L (136-145); eGFR For African Americans > 60 (> 60); eGFR For Non-African Americans > 60 (> 60)
[2020-10-10] MEDS: Ipratropium/Albuterol Neb 3 ML IH SCH ×6 (03:57→23:33)
[2020-10-10] MEDS: Doxycycline 100 MG in 0.9 % Sodium Chloride Mini Bag 100 ML IVPB SCH ×2 (05:21→18:01)
[2020-10-10] MEDS: Gabapentin 400 MG CAPSULE PO SCH ×2 (08:20→19:27)
[2020-10-10] MEDS: predniSONE 20 MG TABLET PO SCH (08:21)
[2020-10-10] MEDS: Ondansetron 4 MG/2 ML VIAL IVP PRN ×2 (08:28→21:44)
[2020-10-10] MEDS ORDERED: Furosemide 40 MG TABLET PO SCH (09:00)
[2020-10-10] MEDS: *HR* Rivaroxaban 10 MG TABLET PO SCH (18:02)
[2020-10-10] MEDS: clonazePAM 0.5 MG TABLET PO PRN (18:02)
[2020-10-10] MEDS: Mirtazapine 15 MG TABLET PO SCH (19:26)
[2020-10-10] MEDS: rOPINIRole 1 MG TABLET PO SCH (19:27)
[2020-10-11] MEDS: Ipratropium/Albuterol Neb 3 ML IH SCH ×4 (03:53→16:53)
[2020-10-11 05:42] LABS: Basophils % 0.1 %; Eosinophils # 0.1 K/mcL (0.0-0.6); Eosinophils % 0.5 %; Hemoglobin 11.2 g/dL (11.5-15.4); Immature Granulocytes % 0.7 % (0-4); Lymphocytes # 4.2 K/mcL (0.6-4.6); Lymphocytes % 39.3 %; Mean Corpuscular HGB Conc 32.9 g/dL (31.6-35.5); Mean Corpuscular Hemoglobin 30.9 pg (28.0-33.3); Mean Corpuscular Volume 93.7 fL (83.0-100.0); Mean Platelet Volume 9.2 fL (9.4-12.4); Monocytes # 0.9 K/mcL (0.0-1.3); Monocytes % 8.8 %; Neutrophils # 5.4 K/mcL (1.6-8.9); Platelet Count 268 K/mcL (140-400); Red Blood Count 3.63 M/mcL (3.82-4.97); Red Cell Distribution Width 14.1 % (11.5-14.5); Segmented Neutrophils % 50.6 %; White Blood Count 10.6 K/mcL (4.3-11.1)
[2020-10-11 05:55] LABS: Platelet Estimate Normal (Normal); Reactive Lymphocytes Present (Not Present)
[2020-10-11 06:05] LABS: BUN/Creatinine Ratio 21 (6-26); Blood Urea Nitrogen 18 mg/dL (6-20); Calcium 8.2 mg/dL (8.6-10.3); Carbon Dioxide 27 mEq/L (23-29); Chloride 105 mEq/L (98-107); Glucose 100 mg/dL (70-105); Osmolality,Calculated 290 (280-300); Potassium 3.2 mEq/L (3.5-5.1); Sodium 139 mEq/L (136-145); eGFR For African Americans > 60 (> 60); eGFR For Non-African Americans > 60 (> 60)
[2020-10-11] MEDS: Doxycycline 100 MG in 0.9 % Sodium Chloride Mini Bag 100 ML IVPB SCH ×2 (06:58→18:03)
[2020-10-11] MEDS: Gabapentin 400 MG CAPSULE PO SCH (08:24)
[2020-10-11] MEDS: predniSONE 20 MG TABLET PO SCH (08:25)
[2020-10-11] MEDS ORDERED: clonazePAM 0.5 MG TABLET PO PRN (10:02)
[2020-10-11 15:26] VITALS: BP 138/77
[2020-10-11] MEDS: *HR* Rivaroxaban 10 MG TABLET PO SCH (18:03)
== END 2020-10-11 18:42 | disposition home or self-care (01) | DRG 190 ==
LOC: EMEROOARM 15:12 → 3BNU 15:12 → SUATTDRO 17:34 → 3BNU 18:27
PROVIDERS: ADMIT Internal Medicine; ATTEND Student in an Organized Health Care Education/Training Program

== ENCOUNTER 2021-03-09 20:06 | Inpatient (IN) ==
[2021-03-09 20:45] LABS: Basophils % 0.3 %; Eosinophils % 0.5 %; Hematocrit 37.8 % (35.3-44.9); Hemoglobin 12.7 g/dL (11.5-15.4); Immature Granulocytes % 0.2 % (0-4); Lymphocytes # 2.5 K/mcL (0.6-4.6); Mean Corpuscular HGB Conc 33.6 g/dL (31.6-35.5); Mean Corpuscular Hemoglobin 29.7 pg (28.0-33.3); Mean Corpuscular Volume 88.3 fL (83.0-100.0); Mean Platelet Volume 9.5 fL (9.4-12.4); Monocytes # 0.6 K/mcL (0.0-1.3); Monocytes % 7.3 %; Neutrophils # 5.4 K/mcL (1.6-8.9); Platelet Count 291 K/mcL (140-400); Red Blood Count 4.28 M/mcL (3.82-4.97); Red Cell Distribution Width 12.6 % (11.5-14.5); Segmented Neutrophils % 62.7 %; White Blood Count 8.6 K/mcL (4.3-11.1)
[2021-03-09 21:11] LABS: BUN/Creatinine Ratio 7 (6-26); Blood Urea Nitrogen 6 mg/dL (6-20); Calcium 8.9 mg/dL (8.6-10.3); Carbon Dioxide 25 mEq/L (23-29); Chloride 102 mEq/L (98-107); Glucose 98 mg/dL (70-105); Osmolality,Calculated 284 (280-300); Potassium 2.9 mEq/L (3.5-5.1); Sodium 138 mEq/L (136-145); eGFR For African Americans > 60 (> 60); eGFR For Non-African Americans > 60 (> 60)
[2021-03-09] MEDS ORDERED: Ondansetron 4 MG/2 ML VIAL IVP ONE (21:27)
[2021-03-09] MEDS ORDERED: Isovue-370 500 ML BOTTLE IVP ONE (21:27)
[2021-03-09] MEDS ORDERED: 0.9 % Sodium Chloride 1,000 ML IVC ONE ×2 (21:27→22:36)
[2021-03-09 22:01] LABS: Alanine Aminotransferase 7 Units/L (7-52); Albumin/Globulin Ratio 1.5 (1.1-2.2); Alkaline Phosphatase 67 Units/L (34-104); Amylase 13 Units/L (29-103); Aspartate Amino Transferase 12 Units/L (13-39); Bilirubin,Direct 0.1 mg/dL (0.0-0.2); Bilirubin,Indirect 0.5 mg/dL (0.0-1.0); Bilirubin,Total 0.6 mg/dL (0.3-1.0); Globulin 2.6 g/dL (2.4-3.5); Lipase 6 Units/L (11-82); Total Protein 6.6 g/dL (6.4-8.9)
[2021-03-09 22:04] LABS: Bilirubin,Urine Negative (Negative); Blood,Urine Negative (Negative); Clarity,Urine Clear (Clear); Color,Urine Yellow (Yellow); Glucose,Urine (UA) Normal (Normal); Ketones,Urine Negative (Negative); Leukocyte Esterase,Urine Negative (Negative); Nitrite,Urine Negative (Negative); Protein,Urine Trace mg/dL (Neg-Trace); Urobilinogen,Urine Normal (Normal)
[2021-03-09 23:24] LABS: INR 1.3; Prothrombin Time 14.9 Seconds (9.4-12.1)
[2021-03-09 23:26] LABS: Activated Partial Thrombo Time 33.7 Seconds (26.0-36.0)
[2021-03-10 00:02] LABS: Influenza A PCR Negative (Negative); Influenza B PCR Negative (Negative); Resp. Syncytial Virus PCR Negative (Negative)
[2021-03-10 00:05] LABS: SARS-CoV-2 by PCR (In House) Negative (Negative)
[2021-03-10] MEDS ORDERED: Potassium Chloride 20 MEQ, Lidocaine 1% 2 ML in 0.9 % Sodium Chloride 250 ML IVPB ONE (00:13)
[2021-03-10] MEDS ORDERED: *HR* LORazepam 2 MG/ML VIAL IVP ONE ×2 (00:26→02:44)
[2021-03-10] MEDS ORDERED: Naloxone 0.4 MG/ML INJ IVP PRN ×2 (00:44→09:23)
[2021-03-10] MEDS ORDERED: Prochlorperazine 10 MG/2 ML VIAL IVP PRN ×2 (00:46→20:06)
[2021-03-10] MEDS ORDERED: *HR* HYDROmorphone (PF) 1 MG/ML SYRINGE IVP ONE (00:48)
[2021-03-10] MEDS ORDERED: Famotidine 20 MG/2 ML VIAL IVP SCH (01:41)
[2021-03-10] MEDS: Levalbuterol Neb 1.25 MG/3 ML IH SCH ×5 (04:32→20:36)
[2021-03-10 04:37] LABS: ABG Base Excess -2 mEq/L (-2 to 3); ABG HCO3 24 mEq/L (21-27); ABG Oxygen Saturation 84 % (95-98); ABG PCO2 44 mmHg (35-45); ABG PH 7.35 pH Units (7.32-7.45); ABG PO2 52 mmHg (85-104); ABG TCO2 26 mEq/L (20-26)
[2021-03-10] MEDS ORDERED: *HR* Succinylcholine 200 MG/10 ML VIAL IVP ONE (05:13)
[2021-03-10] MEDS ORDERED: Lidocaine -MPF 2% 5 ML VIAL ONE (05:13)
[2021-03-10] MEDS ORDERED: *HR* Rocuronium Bromide 50 MG/5 ML VIAL ONE (05:13)
[2021-03-10] MEDS ORDERED: *HR* FentaNYL (PF) 100 MCG/2 ML VIAL ONE (05:14)
[2021-03-10] MEDS ORDERED: *HR* Propofol 200 MG/20 ML VIAL IVP ONE (05:15)
[2021-03-10] MEDS ORDERED: 0.9 % Sodium Chloride 1,000 ML IVC SCH (05:30)
[2021-03-10] MEDS ORDERED: Piperacillin/Tazobactam 3.375 GM in 0.9 % Sodium Chloride Mini Bag 100 ML IVPB SCH (06:00)
[2021-03-10] MEDS ORDERED: EPINEPHrine 1 MG/ML VIAL ONE (06:01)
[2021-03-10] MEDS ORDERED: *HR* HYDROMORPHONE 2 MG/ML VIAL ONE (07:18)
[2021-03-10] MEDS ORDERED: Albumin Human 5% 12.5 GM/250 ML IV.SOLN IVPB ONE (07:30)
[2021-03-10] MEDS ORDERED: Acetaminophen IV 1,000 MG/100 ML BAG IVPB ONE ×2 (07:30→07:38)
[2021-03-10] MEDS ORDERED: Ondansetron 4 MG/2 ML VIAL ONE (07:36)
[2021-03-10] MEDS ORDERED: Sugammadex Sodium 200 MG/2 ML VIAL IV ONE (07:40)
[2021-03-10] MEDS ORDERED: *HR* HYDROmorphone PF 0.5 MG/0.5 ML SYRINGE IVP PRN (08:19)
[2021-03-10] MEDS ORDERED: *HR* FentaNYL (PF) 100 MCG/2 ML VIAL IVP PRN (08:19)
[2021-03-10] MEDS ORDERED: Ondansetron 4 MG/2 ML VIAL IVP PRN (08:19)
[2021-03-10 10:38] LABS: Hematocrit 36.3 % (35.3-44.9); Hemoglobin 11.6 g/dL (11.5-15.4); Mean Corpuscular Volume 93.8 fL (83.0-100.0); Mean Platelet Volume 9.7 fL (9.4-12.4); Platelet Count 235 K/mcL (140-400); Red Blood Count 3.87 M/mcL (3.82-4.97); Red Cell Distribution Width 13.2 % (11.5-14.5); White Blood Count 12.1 K/mcL (4.3-11.1)
[2021-03-10 11:01] LABS: Iron 19 mcg/dL (50-170)
[2021-03-10 11:19] LABS: Ferritin 89 ng/mL (10-120)
[2021-03-10 11:24] LABS: Vitamin D 25 Hydroxy 29 ng/mL (30-80)
[2021-03-10 11:25] LABS: Vitamin B12 429 pg/mL (250-1100)
[2021-03-10 11:30] LABS: BUN/Creatinine Ratio 6 (6-26); Blood Urea Nitrogen 5 mg/dL (6-20); Calcium 7.9 mg/dL (8.6-10.3); Carbon Dioxide 23 mEq/L (23-29); Chloride 112 mEq/L (98-107); Chol/HDL Ratio 3.8 (0-4.9); Cholesterol 127 mg/dL (< 200); Glucose 110 mg/dL (70-105); HDL Cholesterol 33 mg/dL (40-59); LDL Cholesterol,Calculated 72 mg/dL (< 100); Magnesium 1.8 mg/dL (1.6-2.6); Osmolality,Calculated 290 (280-300); Potassium 4.1 mEq/L (3.5-5.1); Sodium 141 mEq/L (136-145); Triglycerides 112 mg/dL (< 150); eGFR For African Americans > 60 (> 60); eGFR For Non-African Americans > 60 (> 60)
[2021-03-10] MEDS: 0.9 % Sodium Chloride 1,000 ML IVC SCH ×2 (11:54→20:20)
[2021-03-10] MEDS: Acetaminophen IV 1,000 MG/100 ML BAG IVPB SCH ×2 (11:55→20:13)
[2021-03-10] MEDS: Famotidine 20 MG/2 ML VIAL IVP SCH (12:04)
[2021-03-10 13:01] LABS: Hepatitis B Surface Antigen Nonreactive (Nonreactive)
[2021-03-10 13:30] LABS: Hepatitis A Antibody IgM Nonreactive (Nonreactive); Hepatitis B Core IgM Nonreactive (Nonreactive)
[2021-03-10] MEDS ORDERED: Chloraseptic Spray 177 ML BOTTLE MM PRN (15:08)
[2021-03-10] MEDS ORDERED: *HR* Metoprolol 5 MG/5 ML VIAL IVP PRN (15:08)
[2021-03-10] MEDS ORDERED: Ondansetron 4 MG/2 ML VIAL IVP ONE (16:26)
[2021-03-10] MEDS: MetroNIDAZOLE 500 MG/100 ML 500 MG/100 ML BAG IVPB SCH (16:48)
[2021-03-10] MEDS: *HR* Heparin 5,000 UNIT/ML VIAL SQ SCH (20:13)
[2021-03-11 00:06] LABS: Hepatitis C Virus Antibody Reactive (Nonreactive)
[2021-03-11] MEDS: Levalbuterol Neb 1.25 MG/3 ML IH SCH ×7 (00:11→23:24)
[2021-03-11] MEDS: MetroNIDAZOLE 500 MG/100 ML 500 MG/100 ML BAG IVPB SCH ×4 (00:18→23:46)
[2021-03-11] MEDS: Acetaminophen IV 1,000 MG/100 ML BAG IVPB SCH ×4 (00:18→17:14)
[2021-03-11] MEDS: Famotidine 20 MG/2 ML VIAL IVP SCH ×2 (02:18→14:14)
[2021-03-11] MEDS: *HR* Heparin 5,000 UNIT/ML VIAL SQ SCH (06:13)
[2021-03-11] MEDS: 0.9 % Sodium Chloride 1,000 ML IVC SCH ×2 (06:17→16:25)
[2021-03-11 07:42] LABS: ABG Base Excess -4 mEq/L (-2 to 3); ABG HCO3 22 mEq/L (21-27); ABG Oxygen Saturation 86 % (95-98); ABG PCO2 43 mmHg (35-45); ABG PH 7.32 pH Units (7.32-7.45); ABG PO2 56 mmHg (85-104); ABG TCO2 23 mEq/L (20-26)
[2021-03-11] MEDS: Ondansetron 4 MG/2 ML VIAL IVP PRN (07:58)
[2021-03-11 08:46] LABS: Hematocrit 34.5 % (35.3-44.9); Hemoglobin 10.8 g/dL (11.5-15.4); Mean Corpuscular HGB Conc 31.3 g/dL (31.6-35.5); Mean Corpuscular Hemoglobin 29.4 pg (28.0-33.3); Mean Platelet Volume 10.3 fL (9.4-12.4); Platelet Count 189 K/mcL (140-400); Red Blood Count 3.67 M/mcL (3.82-4.97); Red Cell Distribution Width 13.3 % (11.5-14.5); White Blood Count 7.9 K/mcL (4.3-11.1)
[2021-03-11 09:15] LABS: BUN/Creatinine Ratio 14 (6-26); Blood Urea Nitrogen 9 mg/dL (6-20); Calcium 8.5 mg/dL (8.6-10.3); Carbon Dioxide 21 mEq/L (23-29); Chloride 110 mEq/L (98-107); Glucose 116 mg/dL (70-105); Osmolality,Calculated 288 (280-300); Potassium 3.5 mEq/L (3.5-5.1); Sodium 139 mEq/L (136-145); eGFR For African Americans > 60 (> 60); eGFR For Non-African Americans > 60 (> 60)
[2021-03-11] MEDS: *HR* LORazepam 2 MG/ML VIAL IVP PRN ×2 (10:37→20:34)
[2021-03-11 10:58] LABS: Estimated Average Glucose 105 mg/dl; Hemoglobin A1C 5.3 %
[2021-03-11] MEDS: Scopolamine Patch 1.5 MG PATCH.TD72 TD SCH (14:15)
[2021-03-11] MEDS: *HR* Enoxaparin 80 MG/0.8 ML SYRINGE SQ SCH (17:14)
[2021-03-11] MEDS: Pantoprazole 40 MG VIAL IVP SCH (17:15)
[2021-03-11] MEDS: (Cyclosporine [Restasis] 1 EACH Droperette) OP SCH (19:50)
[2021-03-12] MEDS: Acetaminophen IV 1,000 MG/100 ML BAG IVPB SCH ×4 (01:33→17:40)
[2021-03-12 01:44] LABS: Basophils % 0.3 %; Eosinophils # 0.1 K/mcL (0.0-0.6); Eosinophils % 0.8 %; Hemoglobin 9.6 g/dL (11.5-15.4); Immature Granulocytes % 0.3 % (0-4); Lymphocytes % 27.3 %; Mean Corpuscular Hemoglobin 29.4 pg (28.0-33.3); Mean Platelet Volume 9.8 fL (9.4-12.4); Monocytes # 0.6 K/mcL (0.0-1.3); Monocytes % 7.9 %; Neutrophils # 4.6 K/mcL (1.6-8.9); Platelet Count 193 K/mcL (140-400); Red Blood Count 3.26 M/mcL (3.82-4.97); Red Cell Distribution Width 13.2 % (11.5-14.5); Segmented Neutrophils % 63.4 %; White Blood Count 7.3 K/mcL (4.3-11.1)
[2021-03-12 02:00] LABS: BUN/Creatinine Ratio 12 (6-26); Blood Urea Nitrogen 8 mg/dL (6-20); Calcium 8.1 mg/dL (8.6-10.3); Carbon Dioxide 22 mEq/L (23-29); Chloride 113 mEq/L (98-107); Glucose 83 mg/dL (70-105); Osmolality,Calculated 289 (280-300); Potassium 3.2 mEq/L (3.5-5.1); Sodium 141 mEq/L (136-145); eGFR For African Americans > 60 (> 60); eGFR For Non-African Americans > 60 (> 60)
[2021-03-12] MEDS: Levalbuterol Neb 1.25 MG/3 ML IH SCH ×5 (04:19→20:42)
[2021-03-12] MEDS: Famotidine 20 MG/2 ML VIAL IVP SCH ×2 (04:23→15:01)
[2021-03-12] MEDS: 0.9 % Sodium Chloride 1,000 ML IVC SCH ×2 (04:32→15:02)
[2021-03-12] MEDS: *HR* Enoxaparin 80 MG/0.8 ML SYRINGE SQ SCH ×2 (04:53→17:38)
[2021-03-12] MEDS: Pantoprazole 40 MG VIAL IVP SCH (05:40)
[2021-03-12] MEDS ORDERED: Potassium Chloride 40 MEQ, Lidocaine 1% 2 ML in 0.9 % Sodium Chloride 500 ML IVPB ONE ×2 (06:48→08:16)
[2021-03-12] MEDS: MetroNIDAZOLE 500 MG/100 ML 500 MG/100 ML BAG IVPB SCH ×2 (08:00→15:01)
[2021-03-12] MEDS: (Cyclosporine [Restasis] 1 EACH Droperette) OP SCH ×2 (08:02→20:15)
[2021-03-12] MEDS: *HR* LORazepam 2 MG/ML VIAL IVP PRN ×2 (10:44→22:47)
[2021-03-12] MEDS ORDERED: *HR* Dextrose 50 % in Water (Syg) 50 ML SYRINGE ONE (11:52)
[2021-03-12] MEDS ORDERED: *HR* Dextrose 50 % in Water (Syg) 50 ML SYRINGE IVP STA (11:58)
[2021-03-12] MEDS ORDERED: Dextrose Gel 15 GM/37.5 ML TUBE PO PRN ×2 (20:14)
[2021-03-12] MEDS: *HR* Dextrose 50 % in Water (Syg) 50 ML SYRINGE IVP PRN ×2 (20:26→23:50)
[2021-03-12 20:32] LABS: % Iron Saturation 8 % (15-50); Transferrin 190 mg/dL (203-362)
[2021-03-13] MEDS: Levalbuterol Neb 1.25 MG/3 ML IH SCH ×7 (00:27→23:26)
[2021-03-13] MEDS: MetroNIDAZOLE 500 MG/100 ML 500 MG/100 ML BAG IVPB SCH ×4 (00:40→23:22)
[2021-03-13] MEDS: Acetaminophen IV 1,000 MG/100 ML BAG IVPB SCH ×5 (00:41→23:23)
[2021-03-13] MEDS: Famotidine 20 MG/2 ML VIAL IVP SCH ×2 (01:31→14:53)
[2021-03-13] MEDS: 0.9 % Sodium Chloride 1,000 ML IVC SCH ×2 (02:30→11:40)
[2021-03-13] MEDS: *HR* Enoxaparin 80 MG/0.8 ML SYRINGE SQ SCH ×2 (05:56→17:31)
[2021-03-13 06:33] LABS: Basophils % 0.4 %; Eosinophils # 0.1 K/mcL (0.0-0.6); Eosinophils % 1.8 %; Hematocrit 31.6 % (35.3-44.9); Hemoglobin 10.3 g/dL (11.5-15.4); Immature Granulocytes % 0.3 % (0-4); Lymphocytes # 1.8 K/mcL (0.6-4.6); Lymphocytes % 26.3 %; Mean Corpuscular HGB Conc 32.6 g/dL (31.6-35.5); Mean Corpuscular Hemoglobin 29.9 pg (28.0-33.3); Mean Corpuscular Volume 91.6 fL (83.0-100.0); Mean Platelet Volume 10.2 fL (9.4-12.4); Monocytes # 0.6 K/mcL (0.0-1.3); Monocytes % 8.6 %; Neutrophils # 4.2 K/mcL (1.6-8.9); Platelet Count 254 K/mcL (140-400); Red Blood Count 3.45 M/mcL (3.82-4.97); Red Cell Distribution Width 13.2 % (11.5-14.5); Segmented Neutrophils % 62.6 %; White Blood Count 6.8 K/mcL (4.3-11.1)
[2021-03-13 06:48] LABS: BUN/Creatinine Ratio 11 (6-26); Blood Urea Nitrogen 6 mg/dL (6-20); Calcium 8.3 mg/dL (8.6-10.3); Carbon Dioxide 23 mEq/L (23-29); Chloride 110 mEq/L (98-107); Glucose 72 mg/dL (70-105); Osmolality,Calculated 284 (280-300); Potassium 3.4 mEq/L (3.5-5.1); Sodium 139 mEq/L (136-145); eGFR For African Americans > 60 (> 60); eGFR For Non-African Americans > 60 (> 60)
[2021-03-13] MEDS ORDERED: Potassium Chloride 40 MEQ, Lidocaine 1% 2 ML in 0.9 % Sodium Chloride 500 ML IVPB ONE (07:56)
[2021-03-13] MEDS: (Cyclosporine [Restasis] 1 EACH Droperette) OP SCH ×2 (09:09→20:06)
[2021-03-13] MEDS: *HR* LORazepam 2 MG/ML VIAL IVP PRN (12:54)
[2021-03-13] MEDS: Ondansetron 4 MG/2 ML VIAL IVP PRN (17:25)
[2021-03-14] MEDS: Famotidine 20 MG/2 ML VIAL IVP SCH ×2 (01:57→12:47)
[2021-03-14] MEDS: Levalbuterol Neb 1.25 MG/3 ML IH SCH ×6 (04:10→23:15)
[2021-03-14] MEDS: Ondansetron 4 MG/2 ML VIAL IVP PRN ×2 (04:46→11:24)
[2021-03-14 05:53] LABS: Basophils # 0.1 K/mcL (0.0-0.2); Basophils % 0.7 %; Eosinophils # 0.1 K/mcL (0.0-0.6); Eosinophils % 1.6 %; Hematocrit 34.5 % (35.3-44.9); Hemoglobin 11.2 g/dL (11.5-15.4); Immature Granulocytes % 0.3 % (0-4); Lymphocytes # 1.7 K/mcL (0.6-4.6); Mean Corpuscular HGB Conc 32.5 g/dL (31.6-35.5); Mean Corpuscular Hemoglobin 29.5 pg (28.0-33.3); Mean Corpuscular Volume 90.8 fL (83.0-100.0); Mean Platelet Volume 9.4 fL (9.4-12.4); Monocytes # 0.5 K/mcL (0.0-1.3); Monocytes % 6.9 %; Neutrophils # 5.1 K/mcL (1.6-8.9); Platelet Count 272 K/mcL (140-400); Red Cell Distribution Width 13.3 % (11.5-14.5); Segmented Neutrophils % 68.5 %; White Blood Count 7.5 K/mcL (4.3-11.1)
[2021-03-14] MEDS: Acetaminophen IV 1,000 MG/100 ML BAG IVPB SCH (05:55)
[2021-03-14] MEDS: *HR* Enoxaparin 80 MG/0.8 ML SYRINGE SQ SCH ×2 (05:56→19:34)
[2021-03-14 06:14] LABS: BUN/Creatinine Ratio 10 (6-26); Blood Urea Nitrogen 6 mg/dL (6-20); Calcium 8.6 mg/dL (8.6-10.3); Carbon Dioxide 23 mEq/L (23-29); Chloride 109 mEq/L (98-107); Glucose 90 mg/dL (70-105); Osmolality,Calculated 287 (280-300); Potassium 3.4 mEq/L (3.5-5.1); Sodium 140 mEq/L (136-145); eGFR For African Americans > 60 (> 60); eGFR For Non-African Americans > 60 (> 60)
[2021-03-14] MEDS ORDERED: *HR* Promethazine 25 MG/ML VIAL IM ONE ×2 (06:28→13:03)
[2021-03-14] MEDS: MetroNIDAZOLE 500 MG/100 ML 500 MG/100 ML BAG IVPB SCH ×2 (07:38→16:04)
[2021-03-14] MEDS ORDERED: Potassium Chloride Elixir 20 MEQ/15 ML UDC PO ONE (08:13)
[2021-03-14] MEDS: 0.9 % Sodium Chloride 1,000 ML IVC SCH ×2 (10:25→19:26)
[2021-03-14] MEDS: *HR* LORazepam 2 MG/ML VIAL IVP PRN (10:51)
[2021-03-14] MEDS: (Cyclosporine [Restasis] 1 EACH Droperette) OP SCH (12:38)
[2021-03-14] MEDS: Gabapentin 400 MG CAPSULE PO SCH ×3 (12:46→23:58)
[2021-03-14] MEDS: DilTIAZem CD (24hr) 120 MG CAP.ER.24H PO SCH ×2 (12:47→20:06)
[2021-03-14] MEDS: Scopolamine Patch 1.5 MG PATCH.TD72 TD SCH (12:58)
[2021-03-14] MEDS: rOPINIRole 1 MG TABLET PO SCH (20:05)
[2021-03-14] MEDS: Mirtazapine 15 MG TABLET PO SCH (20:06)
[2021-03-15] MEDS: (Cyclosporine [Restasis] 1 EACH Droperette) OP SCH ×3 (00:10→21:42)
[2021-03-15] MEDS: MetroNIDAZOLE 500 MG/100 ML 500 MG/100 ML BAG IVPB SCH ×3 (00:50→12:03)
[2021-03-15] MEDS: Famotidine 20 MG/2 ML VIAL IVP SCH ×2 (00:50→13:00)
[2021-03-15 01:49] LABS: Basophils % 0.4 %; Eosinophils # 0.2 K/mcL (0.0-0.6); Eosinophils % 2.2 %; Hematocrit 33.6 % (35.3-44.9); Hemoglobin 10.9 g/dL (11.5-15.4); Immature Granulocytes % 0.4 % (0-4); Lymphocytes # 2.3 K/mcL (0.6-4.6); Lymphocytes % 33.7 %; Mean Corpuscular HGB Conc 32.4 g/dL (31.6-35.5); Mean Corpuscular Hemoglobin 29.5 pg (28.0-33.3); Mean Corpuscular Volume 90.8 fL (83.0-100.0); Mean Platelet Volume 9.8 fL (9.4-12.4); Monocytes # 0.6 K/mcL (0.0-1.3); Monocytes % 8.3 %; Neutrophils # 3.8 K/mcL (1.6-8.9); Platelet Count 284 K/mcL (140-400); Red Cell Distribution Width 13.4 % (11.5-14.5); White Blood Count 6.9 K/mcL (4.3-11.1)
[2021-03-15 02:09] LABS: BUN/Creatinine Ratio 9 (6-26); Blood Urea Nitrogen 6 mg/dL (6-20); Calcium 8.4 mg/dL (8.6-10.3); Carbon Dioxide 21 mEq/L (23-29); Chloride 107 mEq/L (98-107); Glucose 85 mg/dL (70-105); Osmolality,Calculated 281 (280-300); Potassium 3.3 mEq/L (3.5-5.1); Sodium 137 mEq/L (136-145); eGFR For African Americans > 60 (> 60); eGFR For Non-African Americans > 60 (> 60)
[2021-03-15] MEDS: Levalbuterol Neb 1.25 MG/3 ML IH SCH ×6 (03:46→23:47)
[2021-03-15] MEDS: *HR* Enoxaparin 80 MG/0.8 ML SYRINGE SQ SCH ×2 (06:01→18:28)
[2021-03-15] MEDS: Ondansetron 4 MG/2 ML VIAL IVP PRN ×3 (06:26→21:41)
[2021-03-15] MEDS: Potassium Chloride Elixir 20 MEQ/15 ML UDC PO ONE ×2 (09:08→15:44)
[2021-03-15] MEDS: Gabapentin 400 MG CAPSULE PO SCH ×2 (09:08→21:42)
[2021-03-15] MEDS: DilTIAZem CD (24hr) 120 MG CAP.ER.24H PO SCH ×2 (09:08→21:35)
[2021-03-15] MEDS: 0.9 % Sodium Chloride 1,000 ML IVC SCH (09:09)
[2021-03-15] MEDS: Metoclopramide 10 MG/2 ML VIAL IVP SCH ×2 (12:03→18:28)
[2021-03-15] MEDS ORDERED: Potassium Chloride 40 MEQ, Lidocaine 1% 2 ML in 0.9 % Sodium Chloride 500 ML IVPB ONE (18:00)
[2021-03-15] MEDS: *HR* LORazepam 2 MG/ML VIAL IVP PRN (18:30)
[2021-03-15] MEDS: Mirtazapine 15 MG TABLET PO SCH (21:35)
[2021-03-15] MEDS: rOPINIRole 1 MG TABLET PO SCH (21:35)
[2021-03-16] MEDS: Famotidine 20 MG/2 ML VIAL IVP SCH ×2 (00:46→14:37)
[2021-03-16] MEDS: Metoclopramide 10 MG/2 ML VIAL IVP SCH ×4 (00:47→17:48)
[2021-03-16] MEDS: MetroNIDAZOLE 500 MG/100 ML 500 MG/100 ML BAG IVPB SCH ×3 (03:07→17:47)
[2021-03-16] MEDS: 0.9 % Sodium Chloride 1,000 ML IVC SCH (03:07)
[2021-03-16] MEDS: Levalbuterol Neb 1.25 MG/3 ML IH SCH (04:27)
[2021-03-16] MEDS: *HR* Enoxaparin 80 MG/0.8 ML SYRINGE SQ SCH (05:49)
[2021-03-16] MEDS: Ondansetron 4 MG/2 ML VIAL IVP PRN ×2 (05:50→12:07)
[2021-03-16 07:41] LABS: Basophils % 0.5 %; Eosinophils # 0.2 K/mcL (0.0-0.6); Eosinophils % 2.5 %; Hematocrit 30.4 % (35.3-44.9); Hemoglobin 9.9 g/dL (11.5-15.4); Immature Granulocytes % 0.3 % (0-4); Lymphocytes # 1.5 K/mcL (0.6-4.6); Lymphocytes % 24.5 %; Mean Corpuscular HGB Conc 32.6 g/dL (31.6-35.5); Mean Corpuscular Volume 92.1 fL (83.0-100.0); Mean Platelet Volume 9.6 fL (9.4-12.4); Monocytes # 0.6 K/mcL (0.0-1.3); Monocytes % 10.6 %; Neutrophils # 3.7 K/mcL (1.6-8.9); Platelet Count 263 K/mcL (140-400); Red Cell Distribution Width 13.6 % (11.5-14.5); Segmented Neutrophils % 61.6 %
[2021-03-16] MEDS ORDERED: Levalbuterol Neb 1.25 MG/3 ML IH PRN (08:00)
[2021-03-16 08:01] LABS: BUN/Creatinine Ratio 5 (6-26); Blood Urea Nitrogen 3 mg/dL (6-20); Calcium 8.3 mg/dL (8.6-10.3); Carbon Dioxide 22 mEq/L (23-29); Chloride 108 mEq/L (98-107); Glucose 132 mg/dL (70-105); Osmolality,Calculated 282 (280-300); Potassium 3.6 mEq/L (3.5-5.1); Sodium 137 mEq/L (136-145); eGFR For African Americans > 60 (> 60); eGFR For Non-African Americans > 60 (> 60)
[2021-03-16] MEDS: (Cyclosporine [Restasis] 1 EACH Droperette) OP SCH ×2 (08:08→20:08)
[2021-03-16] MEDS: DilTIAZem CD (24hr) 120 MG CAP.ER.24H PO SCH ×2 (08:08→20:07)
[2021-03-16] MEDS: Gabapentin 400 MG CAPSULE PO SCH ×2 (08:08→20:08)
[2021-03-16] MEDS ORDERED: Potassium Chloride 40 MEQ, Lidocaine 1% 2 ML in 0.9 % Sodium Chloride 500 ML IVPB ONE (11:33)
[2021-03-16 14:17] LABS: Magnesium 1.7 mg/dL (1.6-2.6)
[2021-03-16] MEDS: *HR* LORazepam 2 MG/ML VIAL IVP PRN (16:12)
[2021-03-16] MEDS ORDERED: *HR* Rivaroxaban 10 MG TABLET PO SCH (17:00)
[2021-03-16] MEDS: rOPINIRole 1 MG TABLET PO SCH (20:07)
[2021-03-16] MEDS: Mirtazapine 15 MG TABLET PO SCH (20:07)
[2021-03-17] MEDS: Famotidine 20 MG/2 ML VIAL IVP SCH (01:53)
[2021-03-17] MEDS: Metoclopramide 10 MG/2 ML VIAL IVP SCH ×2 (01:53→07:33)
[2021-03-17] MEDS: MetroNIDAZOLE 500 MG/100 ML 500 MG/100 ML BAG IVPB SCH ×2 (01:54→08:33)
[2021-03-17 02:46] LABS: Basophils % 0.5 %; Eosinophils # 0.2 K/mcL (0.0-0.6); Eosinophils % 2.8 %; Hematocrit 31.9 % (35.3-44.9); Hemoglobin 10.4 g/dL (11.5-15.4); Immature Granulocytes % 0.3 % (0-4); Lymphocytes % 25.2 %; Mean Corpuscular HGB Conc 32.6 g/dL (31.6-35.5); Mean Corpuscular Hemoglobin 29.7 pg (28.0-33.3); Mean Corpuscular Volume 91.1 fL (83.0-100.0); Mean Platelet Volume 9.8 fL (9.4-12.4); Monocytes # 0.8 K/mcL (0.0-1.3); Monocytes % 9.9 %; Neutrophils # 4.8 K/mcL (1.6-8.9); Platelet Count 299 K/mcL (140-400); Red Cell Distribution Width 13.4 % (11.5-14.5); Segmented Neutrophils % 61.3 %; White Blood Count 7.9 K/mcL (4.3-11.1)
[2021-03-17 02:59] LABS: BUN/Creatinine Ratio 4 (6-26); Blood Urea Nitrogen 2 mg/dL (6-20); Calcium 8.7 mg/dL (8.6-10.3); Carbon Dioxide 25 mEq/L (23-29); Chloride 106 mEq/L (98-107); Glucose 95 mg/dL (70-105); Magnesium 1.8 mg/dL (1.6-2.6); Osmolality,Calculated 280 (280-300); Phosphorous 3.2 mg/dL (2.7-4.5); Potassium 3.8 mEq/L (3.5-5.1); Sodium 137 mEq/L (136-145); eGFR For African Americans > 60 (> 60); eGFR For Non-African Americans > 60 (> 60)
[2021-03-17] MEDS: Ondansetron 4 MG/2 ML VIAL IVP PRN (08:32)
[2021-03-17] MEDS: *HR* LORazepam 2 MG/ML VIAL IVP PRN (08:32)
[2021-03-17] MEDS: DilTIAZem CD (24hr) 120 MG CAP.ER.24H PO SCH (08:35)
[2021-03-17] MEDS: (Cyclosporine [Restasis] 1 EACH Droperette) OP SCH (08:36)
[2021-03-17] MEDS: Gabapentin 400 MG CAPSULE PO SCH (08:36)
[2021-03-17 10:50] VITALS: BP 145/98; PULSE 84; TEMP 98.7; O2SAT 96
[2021-03-17] MEDS ORDERED: FLU Vac QV 21-22 (6Month+)/PF 0.5 ML SYRINGE IM ONE (10:58)
[2021-03-18] MEDS ORDERED: Cholecalciferol (D-3) 1,000 UNIT (25MCG) TABLET PO SCH (09:00)
== END 2021-03-17 11:45 | disposition home health service (06) | DRG 335 ==
LOC: EMEROOARM 20:06 → 3ANU 20:06 → ICNU 03-10 03:57 → 2NENU 03-10 10:03 → SUATTDRO 03-10 13:56
PROVIDERS: ADMIT Internal Medicine; ATTEND Internal Medicine